=== PATIENT | male | born 1940 | race Caucasian/White ===

== ENCOUNTER → 2016-08-23 | Outpatient (CLI) | payer MEDICARE ==
[2016-08-23 10:14] LABS: Amorphous Sediment,Urine Rare /hpf; Appearance,Urine Cloudy (Clear); Bilirubin,Urine Negative (Negative); Glucose,Urine (UA) Negative (Negative); Ketones,Urine Negative (Negative); Leukocyte Esterase,Urine Negative (Negative); Mucus,Urine Many /hpf; Nitrite,Urine Negative (Negative); Particle Count 11452; Protein,Urine 1+ (Negative); RBC,Urine 1 /hpf (0-5); Specific Gravity,Urine 1.029 (1.001-1.035); UA Billing (MACRO vs. MICRO) MICRO
[2016-08-23 10:16] LABS: CH 33.2; CHCM 36.6; HCT 40.8 % (39.0-53.0); HGB 13.9 gm/dL (13.0-17.5); Hyperchromasia Slight; MCH 31.1 pg (25.0-35.0); MCHC 34.1 g/dL (31.0-37.0); MCV 91.2 fL (80.0-100.0); Mean Platelet Volume 7.3; Poikilocytosis Slight; RBC 4.47 m/uL (4.30-5.90); RDW 14.7 % (11.5-15.5); WBC 5.8 k/uL (3.8-10.6)
[2016-08-23 10:47] LABS: ALT 43 U/L (21-72); AST 29 U/L (17-59); Alkaline Phosphatase 84 U/L (38-126); Anion Gap 9 mmol/L; Blood Urea Nitrogen 20 mg/dL (9-20); Calcium 9.1 mg/dL (8.4-10.2); Carbon Dioxide 29 mmol/L (22-30); Chloride 105 mmol/L (98-107); Cholesterol 166 mg/dL (<200); Glucose 140 mg/dL (74-99); HDL Cholesterol 57 mg/dL (40-60); Non-African American GFR(MDRD) 59 (>60 ml/min/1.73 sqM); Potassium 4.9 mmol/L (3.5-5.1); Sodium 143 mmol/L (137-145); Total Bilirubin 1.2 mg/dL (0.2-1.3); Total Protein 7.1 g/dL (6.3-8.2); Triglycerides 152 mg/dL (<150)
[2016-08-23 11:14] LABS: Prostate Specific Antigen <0.06 ng/mL (0.00-4.00)
== END | disposition home or self-care (01) ==
LOC: LABWHC1 09:31
PROVIDERS: ATTEND Internal Medicine
DX: Z00.00 Encounter for general adult medical examination without abnormal findings (principal); C61 Malignant neoplasm of prostate; R73.01 Impaired fasting glucose
CPT/HCPCS: 36415; 80053; 80061; 81001; 84153; 85027

== ENCOUNTER → 2017-09-13 | Outpatient (CLI) | payer MEDICARE ==
[2017-09-13 11:42] LABS: HCT 36.7 % (39.0-53.0); HGB 12.8 gm/dL (13.0-17.5); MCH 32.2 pg (25.0-35.0); MCHC 34.8 g/dL (31.0-37.0); MCV 92.5 fL (80.0-100.0); Mean Platelet Volume 7.4; Platelet Count 138 k/uL (150-450); Poikilocytosis Slight; RBC 3.97 m/uL (4.30-5.90); RDW 14.5 % (11.5-15.5); WBC 4.2 k/uL (3.8-10.6)
[2017-09-13 12:00] LABS: ALT 34 U/L (21-72); AST 31 U/L (17-59); Alkaline Phosphatase 66 U/L (38-126); Anion Gap 8 mmol/L; Blood Urea Nitrogen 19 mg/dL (9-20); Calcium 9.2 mg/dL (8.4-10.2); Carbon Dioxide 30 mmol/L (22-30); Chloride 103 mmol/L (98-107); Cholesterol 169 mg/dL (<200); Glucose 127 mg/dL (74-99); HDL Cholesterol 54 mg/dL (40-60); LDL Cholesterol,Calculated 85 mg/dL (0-99); Potassium 4.6 mmol/L (3.5-5.1); Sodium 141 mmol/L (137-145); Total Bilirubin 1.1 mg/dL (0.2-1.3); Total Protein 6.3 g/dL (6.3-8.2); Triglycerides 151 mg/dL (<150)
[2017-09-13 12:32] LABS: Prostate Specific Antigen <0.10 ng/mL (0.00-4.00)
[2017-09-13 17:29] LABS: Hemoglobin A1C 4.9 % (4.0-6.0)
== END | disposition home or self-care (01) ==
LOC: LABWHC1 10:59
PROVIDERS: ATTEND Internal Medicine
DX: Z00.00 Encounter for general adult medical examination without abnormal findings (principal); C61 Malignant neoplasm of prostate; R73.01 Impaired fasting glucose; I10 Essential (primary) hypertension
CPT/HCPCS: 36415; 80053; 80061; 83036; 84153; 85027

== ENCOUNTER 2021-04-28 11:47 | Inpatient (IN) | payer MEDICARE ==
--- NOTE | 2021-04-28 12:08 | ED ---
General Adult HPI - General Stated complaint: Fall/Neuro Symptoms Time Seen by Provider: 04/28/21 11:52 Source: patient, EMS, RN notes reviewed Mode of arrival: EMS Limitations: no limitations - History of Present Illness Initial comments: Patient is a pleasant 81-year-old male presenting to the emergency department with concerns for potential stroke. Onset of symptoms appears to be around 3:30 AM. Patient woke up to use the restroom. Symptoms started following that. Patient did have problems finding words and slurred speech. Patient did have some difficulty using his right arm. Patient also had staggered gait. Patient was evaluated by physician friend and brought to the emergency department by EMS. Physician friend feels speech has significantly improved at this time and is near normal. Patient also feels he has significantly improved. No history of similar symptoms previously. Patient is on baby aspirin daily. Patient did have a fall to the side of the garage yesterday and did strike his head on a metal track. Patient had been doing fine that day and yesterday. - Related Data Home Medications Medication Instructions Recorded Confirmed Atorvastatin [Lipitor] 20 mg PO DAILY 11/16/15 04/28/21 Ibuprofen [Motrin Ib] 400 mg PO Q8H PRN 04/28/21 04/28/21 Latanoprost/Pf [Latanoprost 0.005% 1 drop BOTH EYES DAILY 04/28/21 04/28/21 Eye Drop] Timolol 0.5% Ophth Soln [Timoptic 1 drop BOTH EYES DAILY 04/28/21 04/28/21 0.5% Ophth Soln] atenoloL [Tenormin] 12.5 - 25 mg PO DAILY PRN 04/28/21 04/28/21 Allergies Allergy/AdvReac Type Severity Reaction Status Date / Time No Known Allergies Allergy Verified 04/28/21 13:19 Review of Systems ROS Statement: Those systems with pertinent positive or pertinent negative responses have been documented in the HPI. ROS Other: All systems not noted in ROS Statement are negative. Constitutional: Denies: fever Eyes: Denies: eye pain ENT: Denies: ear pain Respiratory: Denies: cough Cardiovascular: Denies: chest pain Endocrine: Denies: fatigue Gastrointestinal: Denies: abdominal pain Genitourinary: Denies: urgency Musculoskeletal: Denies: back pain Skin: Denies: rash Neurological: Reports: as per HPI, weakness, confusion, abnormal gait Past Medical History Past Medical History: Cancer, Hyperlipidemia Additional Past Medical History / Comment(s): CA: prostate & radiation, aortic stenosis History of Any Multi-Drug Resistant Organisms: None Reported Additional Past Surgical History / Comment(s): colonoscopy Past Anesthesia/Blood Transfusion Reactions: No Reported Reaction Past Psychological History: No Psychological Hx Reported Past Alcohol Use History: Rare Past Drug Use History: None Reported - Past Family History Mother Family Medical History: Coronary Artery Disease (CAD) Father Family Medical History: Coronary Artery Disease (CAD) General Exam Limitations: no limitations General appearance: alert, in no apparent distress Head exam: Present: other (Left forehead soft tissue swelling) Eye exam: Present: normal appearance, PERRL, EOMI. Absent: nystagmus Neck exam: Present: normal inspection Respiratory exam: Present: normal lung sounds bilaterally Cardiovascular Exam: Present: regular rate, normal rhythm, systolic murmur GI/Abdominal exam: Present: soft. Absent: tenderness Extremities exam: Present: normal inspection Neurological exam: Present: alert, CN II-XII intact. Absent: motor sensory deficit Expanded Neurological exam: Present: protecting the airway, other (Questionable minimal slurred speech) Cranial nerves: EOM's Intact: Normal, Facial Sensation: Normal Sensory exam: Upper Extremity Light Touch: Normal, Lower Extremity Light Touch: Normal Motor strength exam: RUE: 5, LUE: 5, RLE: 5, LLE: 5 Eye Response: (4) open spontaneously Motor Response: (6) obeys commands Verbal Response: (5) oriented Psychiatric exam: Present: normal affect, normal mood Skin exam: Present: normal color Course Vital Signs 04/28/21 11:58 Pulse Rate 46 L Respiratory 18 Rate Blood Pressure 186/83 O2 Sat by Pulse 99 Oximetry - Reevaluation(s) Reevaluation #1: 04/28/21 12:08 Case was discussed with Dr. Wolfe who agrees patient is not TPA candidate at this time. Patient is not candidate secondary to symptoms. Than 4.5 hours. Patient also has resolution of symptoms. Patient also has recent head injury. EKG Findings - EKG Comments: EKG Findings:: Sinus bradycardia with rate of 51 with sinus arrhythmia. CA 178. QRS 92. QT 456. QTc 420. Normal axis. LVH criteria. No acute ST change. Medical Decision Making - Medical Decision Making Patient was reevaluated and updated. Son is present now who is also a physician. They're all updated. Dr. valentin has been paged for admission of his patient. - Lab Data Result diagrams: 04/28/21 12:18 04/28/21 12:18 Lab Results 04/28/21 04/28/21 04/28/21 Range/Units 12:18 12:18 12:18 WBC 5.8 (3.8-10.6) k/uL RBC 3.51 L (4.30-5.90) m/uL Hgb 11.7 L (13.0-17.5) gm/dL Hct 31.4 L (39.0-53.0) % MCV 89.3 (80.0-100.0) fL MCH 33.4 (25.0-35.0) pg MCHC 37.4 H (31.0-37.0) g/dL RDW 12.6 (11.5-15.5) % Plt Count 145 L (150-450) k/uL MPV 8.0 Neutrophils % 73 % Lymphocytes % 14 % Monocytes % 8 % Eosinophils % 1 % Basophils % 0 % Neutrophils # 4.3 (1.3-7.7) k/uL Lymphocytes # 0.8 L (1.0-4.8) k/uL Monocytes # 0.5 (0-1.0) k/uL Eosinophils # 0.1 (0-0.7) k/uL Basophils # 0.0 (0-0.2) k/uL Hyperchromasia Marked PT 10.8 (9.0-12.0) sec INR 1.0 (<1.2) APTT 24.4 (22.0-30.0) sec Sodium 123 L (137-145) mmol/L Potassium 4.3 (3.5-5.1) mmol/L Chloride 94 L (98-107) mmol/L Carbon Dioxide 23 (22-30) mmol/L Anion Gap 6 mmol/L BUN 7 L (9-20) mg/dL Creatinine 0.85 (0.66-1.25) mg/dL Est GFR (CKD-EPI)AfAm >90 (>60 ml/min/1.73 sqM) Est GFR (CKD-EPI)NonAf 81 (>60 ml/min/1.73 sqM) Glucose 130 H (74-99) mg/dL Calcium 8.6 (8.4-10.2) mg/dL Total Bilirubin 0.7 (0.2-1.3) mg/dL AST 30 (17-59) U/L ALT 22 (4-49) U/L Alkaline Phosphatase 60 (38-126) U/L Troponin I (0.000-0.034) ng/mL Total Protein 5.6 L (6.3-8.2) g/dL Albumin 3.3 L (3.5-5.0) g/dL 04/28/21 Range/Units 12:18 WBC (3.8-10.6) k/uL RBC (4.30-5.90) m/uL Hgb (13.0-17.5) gm/dL Hct (39.0-53.0) % MCV (80.0-100.0) fL MCH (25.0-35.0) pg MCHC (31.0-37.0) g/dL RDW (11.5-15.5) % Plt Count (150-450) k/uL MPV Neutrophils % % Lymphocytes % % Monocytes % % Eosinophils % % Basophils % % Neutrophils # (1.3-7.7) k/uL Lymphocytes # (1.0-4.8) k/uL Monocytes # (0-1.0) k/uL Eosinophils # (0-0.7) k/uL Basophils # (0-0.2) k/uL Hyperchromasia PT (9.0-12.0) sec INR (<1.2) APTT (22.0-30.0) sec Sodium (137-145) mmol/L Potassium (3.5-5.1) mmol/L Chloride (98-107) mmol/L Carbon Dioxide (22-30) mmol/L Anion Gap mmol/L BUN (9-20) mg/dL Creatinine (0.66-1.25) mg/dL Est GFR (CKD-EPI)AfAm (>60 ml/min/1.73 sqM) Est GFR (CKD-EPI)NonAf (>60 ml/min/1.73 sqM) Glucose (74-99) mg/dL Calcium (8.4-10.2) mg/dL Total Bilirubin (0.2-1.3) mg/dL AST (17-59) U/L ALT (4-49) U/L Alkaline Phosphatase (38-126) U/L Troponin I <0.012 (0.000-0.034) ng/mL Total Protein (6.3-8.2) g/dL Albumin (3.5-5.0) g/dL - Radiology Data Radiology results: report reviewed (Computed tomography scan of the brain shows atrophy. CTA shows stenosis left internal carotid artery. Right subclavian artery stenosis.), image reviewed (Chest and abdominal x-ray shows no acute process.) Disposition Clinical Impression: Cerebrovascular accident (CVA), Hyponatremia Disposition: ADMITTED IP TO THIS HOSP Is patient prescribed a controlled substance at d/c from ED?: No Referrals: Hansel Valentin MD [Primary Care Provider] - 1-2 days Decision Time: 13:39
--- NOTE | 2021-04-28 12:27 | CT ---
EXAMINATION TYPE: CT brain wo con for TPA DATE OF EXAM: 04/28/2021 COMPARISON: None HISTORY: fall, neuro deficit, acute, stroke suspected CT DLP: 1058 mGycm Automated exposure control for dose reduction was used. Local imaging through the brain. FINDINGS: Periventricular white matter shows patchy low attenuation. There is no hemorrhage or hydrocephalus. T here are cerebral vascular calcifications. The calvarium is intact. Paranasal sinuses and mastoid air cells as visualized are normal. IMPRESSION: AGE-RELATED CHANGES OF ATROPHY AND PROBABLE CHRONIC SMALL VESSEL ISCHEMIA.
[2021-04-28 12:39] LABS: ALT 22 U/L (4-49); AST 30 U/L (17-59); African American GFR (CKD) >90 (>60 ml/min/1.73 sqM); Albumin 3.3 g/dL (3.5-5.0); Alkaline Phosphatase 60 U/L (38-126); Anion Gap 6 mmol/L; Blood Urea Nitrogen 7 mg/dL (9-20); Calcium 8.6 mg/dL (8.4-10.2); Carbon Dioxide 23 mmol/L (22-30); Chloride 94 mmol/L (98-107); Glucose 130 mg/dL (74-99); Non-African American GFR(CKD) 81 (>60 ml/min/1.73 sqM); Potassium 4.3 mmol/L (3.5-5.1); Sodium 123 mmol/L (137-145); Total Bilirubin 0.7 mg/dL (0.2-1.3); Total Protein 5.6 g/dL (6.3-8.2)
[2021-04-28 12:43] LABS: Partial Thromboplastin Time 24.4 sec (22.0-30.0); Prothrombin Time 10.8 sec (9.0-12.0)
[2021-04-28 12:49] LABS: Basophils % (A) 0 %; Eosinophils # (A) 0.1 k/uL (0-0.7); Eosinophils % (A) 1 %; HCT 31.4 % (39.0-53.0); HGB 11.7 gm/dL (13.0-17.5); Hyperchromasia Marked; Lymphocytes # (A) 0.8 k/uL (1.0-4.8); Lymphocytes % (A) 14 %; MCH 33.4 pg (25.0-35.0); MCHC 37.4 g/dL (31.0-37.0); MCV 89.3 fL (80.0-100.0); Monocytes # (A) 0.5 k/uL (0-1.0); Monocytes % (A) 8 %; Neutrophils # (A) 4.3 k/uL (1.3-7.7); Neutrophils % (A) 73 %; Platelet Count 145 k/uL (150-450); RBC 3.51 m/uL (4.30-5.90); RDW 12.6 % (11.5-15.5); WBC 5.8 k/uL (3.8-10.6)
[2021-04-28] MEDS ORDERED: SODIUM CHLORIDE 0.9% 500 ML 500 ML IV STA (12:50)
--- NOTE | 2021-04-28 13:13 | CT ---
EXAMINATION TYPE: CT angio head neck DATE OF EXAM: 04/28/2021 HISTORY: fall, neuro deficit, acute, stroke suspected COMPARISON: CT brain same date CT DLP: 390.3 mGycm. Automated Exposure Control for Dose Reduction was Utilized. TECHNIQUE: CTA scan of the neck is performed with IV Contrast, patient injected with 65 mL of Isovue 370, axial images are obtained, coronal and sagittal reformatted images are reviewed. 3D reconstruct ed images are created on an independent workstation and reviewed. FINDINGS: Carotid/Vascular Structures: The thoracic aorta, innominate, left and right common carotid, left and right subclavian arteries are patent, there is a stenosis of the proximal right subclavian artery whi ch appears to be high-grade, axial image #15. No significant carotid stenosis is evident on the right , on the left there is a proximal internal carotid artery stenosis present estimated at least 60-70% diameter reduction. Internal and external carotid arteries are patent, the left vertebral artery is d ominant. Anterior and posterior circulation within the [place] are patent, there is no evident embolu s or dissection, no evident aneurysm. Note evident intracranial stenosis. Degenerative disc changes are present in the visualized spine, there is associated facet arthropathy. Other: IMPRESSION: Proximal right subclavian artery shows a stenosis. Correlate with discrepant upper extrem ity blood pressures. There is carotid stenosis on the left which is hemodynamically significant. NASCET criteria was used in interpretation of this exam?
--- NOTE | 2021-04-28 13:23 | XR ---
EXAMINATION TYPE: XR chest 2V DATE OF EXAM: 04/28/2021 COMPARISON: Chest x-ray 11/14/2010 HISTORY: Altered mental status TECHNIQUE: Frontal and lateral views of the chest are obtained. FINDINGS: There is no focal air space opacity, pleural effusion, or pneumothorax seen. The cardiac silhouette size is somewhat prominent accounting for technique, patient is rotated, lung volumes are low, there are overlying leads. The osseous structures are intact. IMPRESSION: Expiratory rotated exam. Accentuation in the appearance of the heart may be technical. F ollow-up as indicated.
--- NOTE | 2021-04-28 13:25 | XR ---
KUB HISTORY: Constipation KUB and T2 images, no comparisons There is contrast material within the bladder and renal collecting systems, ureters from patient's co ntrast enhanced CT same date. Lung bases are clear. Degenerative disc changes are present in the visu alized spine. There are overlying leads. No evident pneumoperitoneum or bowel obstruction. Probable p hlebolith present in the left hemipelvis, there are prostate seeds in place. IMPRESSION: Nonobstructed bowel gas pattern, follow-up as indicated.
[2021-04-28] MEDS ORDERED: ASPIRIN 325 MG TAB PO STA (13:40)
[2021-04-28] MEDS ORDERED: CLOPIDOGREL 75 MG TAB PO STA (14:35)
[2021-04-28] MEDS ORDERED: METOPROLOL TARTRATE 12.5 MG TAB PO STA (14:47)
[2021-04-28 14:59] LABS: Appearance,Urine Clear (Clear); Bilirubin,Urine Negative (Negative); Blood,Urine Negative (Negative); Color,Urine Light Yellow; Glucose,Urine (UA) Negative (Negative); Ketones,Urine Negative (Negative); Leukocyte Esterase,Urine Negative (Negative); Nitrite,Urine Negative (Negative); Protein,Urine Negative (Negative); Specific Gravity,Urine 1.018 (1.001-1.035); Urobilinogen,Urine <2.0 mg/dL (<2.0)
[2021-04-28] MEDS ORDERED: ASPIRIN 81 MG PO STA (15:11)
[2021-04-28] MEDS: SODIUM CHLORIDE 0.9% 1,000 ML IV SCH ×2 (15:15→23:55)
--- NOTE | 2021-04-28 15:32 | P.HPIM ---
History of Present Illness H&P Date: 04/28/21 Chief Complaint: Slurred speech all at home on his left side of the head with hematoma 2 day History and physical Dictation by Dr. Barbie Morales [facility] date of service 04/28/2021. 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 He had a slurred speech and problem with expressive aphasia and difficulty using his right arm and stay guarded gait. History of present illness Dr. 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 And expressive aphasia. This patient arrived to the emergency room he had a computed tomography scan which was negative and CT angiogram with the presence of right subclavian stenosis and left carotid artery stenosis in the range of 70% and despite that pulses radial pulses and brachial pulses i are normal. He is on 126 mg of aspirin at home daily apparently has been failed with the supporting evidence to include TIA or stroke in progression despite of the use of aspirin 126 mg once daily. Past medical history only eyedrops latanoprost 0.005% 1 drop each eye daily and atenolol 0.5% ophthalmic solution Timoptic 0.5% 1 drop both eyes daily He is on atorvastatin 20 mg daily at bedtime also he is on ibuprofen 400 mg every 8 hour when necessary which has been stopped on this admission Patient also on atenolol 12.5 mg once daily however he had tachycardia and he used to take it for hypertension ALLERGY is unknown No history of smoking No history of drinking He had significant history of constipation and he has been advised with Dr. Makenna Duron gastroenterology and she was planning for colonoscopy at the end of this month. However the patient has been using MiraLAX as well as Dulcolax and other laxatives including suppositories with no response. With the underlying abdominal distention. Patient has a son and a daughter loss the ER physician as well. Review of system Eyes no infection and no pain Constitutional no fever no chills. Respiratory no cough or expectoration Cardiovascular no palpitations or chest pain but history of hypertension Endocrine no history of fatigue however in the last few weeks he become sluggish his initial laboratory found that he had hyperglycemia and will be checking on diabetes as well. Gastrointestinal which is also a problem as he tried to go to the bathroom and having several modality for over 2 weeks and at that time in the ER found that he has hyponatremia with the sodium 123 in the ER. No history of drug resistant or blood transfusion reaction no psychological history and no alcohol intake except for rare occasion and no drug use. Family history coronary artery disease Past medical history hypertension hyperlipidemia, bradycardia with the use of atenolol. Physical exam: Patient is conscious alert oriented still have remanent of speech disturbance however resolved any facial paresthesia with the underlying TIA. Also with the underlying right subclavian stenosis which is not significant as well as left carotid stenosis. The head was traumatic on his left side above the eyebrows with the hematoma whe n he has it however is resolving gradually. Computed tomography scan done indicate no other fracture or hematoma. Oropharynx natural teeth Pupil is equal reactive Hearing is normal. Neck was supple no JVD no thyromegaly no lymphadenopathy. Chest clear to auscultation and percussion no wheezes no rhonchi's. The heart regular sinus rhythm with a history of hypertension rule out hypertensive heart disease on telemetry and echocardiogram ordered. The abdomen is distended with tympanitic on percussion positive unclear if he had obstruction, KUB done in the ER which indicating nonspecific gas and patient plays on clear liquid diet and tomorrow will check if he has any improvement or we need to obtain computed tomography scan of the abdomen with contrast and obtaining a serum on malaise and lipase. Extremities: No edema and positive pulses bilateral. Neurologically: Patient able to extend his arm no tremor and able to perform the simple cranial nerve checks without problem his motor power is stable with no paresthesias and no motor deficit. The assessment Assessment: And the plan #1 TIA with progression and we will be monitoring the patient with the neurochecks and the computed tomography scan the initial one was negative and if any development we will be obtaining MRI of the brain. Abdominal distention with the underlying obstruction combating on percussion with some discomfort will wait with the use of clear liquid diet for tonight we'll assess tomorrow and see if any need for further testing. Monitoring the neurochecks per protocol as well. His son is a physician actually senior environmental engineer in [place] and he will be staying with them tonight. Further evaluation depends on the results and the virtual urology is not needed at this time for patient evaluation however if we have progression we may call for. Past Medical History Past Medical History: Cancer, Hyperlipidemia Additional Past Medical History / Comment(s): CA: prostate & radiation, History of Any Multi-Drug Resistant Organisms: None Reported Additional Past Surgical History / Comment(s): colonoscopy Past Anesthesia/Blood Transfusion Reactions: No Reported Reaction Past Psychological History: No Psychological Hx Reported Smoking Status: Never smoker Past Alcohol Use History: Rare Past Drug Use History: None Reported - Past Family History Mother Family Medical History: Coronary Artery Disease (CAD) Father Family Medical History: Coronary Artery Disease (CAD) Medications and Allergies Home Medications Medication Instructions Recorded Confirmed Type Atorvastatin [Lipitor] 20 mg PO DAILY 11/16/15 04/28/21 History Ibuprofen [Motrin Ib] 400 mg PO Q8H PRN 04/28/21 04/28/21 History Latanoprost/Pf [Latanoprost 0.005% 1 drop BOTH EYES DAILY 04/28/21 04/28/21 History Eye Drop] Timolol 0.5% Ophth Soln [Timoptic 1 drop BOTH EYES DAILY 04/28/21 04/28/21 History 0.5% Ophth Soln] atenoloL [Tenormin] 12.5 - 25 mg PO DAILY PRN 04/28/21 04/28/21 History Allergies Allergy/AdvReac Type Severity Reaction Status Date / Time No Known Allergies Allergy Verified 04/28/21 13:19 Physical Exam Vitals: Vital Signs Pulse Resp BP Pulse Ox 04/28/21 11:58 46 L 18 186/83 99 Intake and Output 04/28/21 04/28/21 04/28/21 06:59 14:59 22:59 Other: Weight 68.946 kg Results CBC & Chem 7: 04/28/21 12:18 04/28/21 12:18 Labs: Abnormal Lab Results - Last 24 Hours (Table) 04/28/21 04/28/21 04/28/21 Range/Units 12:18 12:18 12:18 RBC 3.51 L (4.30-5.90) m/uL Hgb 11.7 L (13.0-17.5) gm/dL Hct 31.4 L (39.0-53.0) % MCHC 37.4 H (31.0-37.0) g/dL Plt Count 145 L (150-450) k/uL Lymphocytes # 0.8 L (1.0-4.8) k/uL Sodium 123 L (137-145) mmol/L Chloride 94 L (98-107) mmol/L BUN 7 L (9-20) mg/dL Glucose 130 H (74-99) mg/dL Osmolality 265 L (280-301) mosm/kg Total Protein 5.6 L (6.3-8.2) g/dL Albumin 3.3 L (3.5-5.0) g/dL Thrombosis Risk Factor Assmnt - Choose All That Apply Any of the Below Risk Factors Present?: No Other Risk Factors: Yes Each Risk Factor Represents 3 Points: Age 75 years or older Other congenital or acquired thrombophilia - If yes, enter type in comment: No Thrombosis Risk Factor Assessment Total Risk Factor Score: 3 Thrombosis Risk Factor Assessment Level: Moderate Risk
[2021-04-28] MEDS: ATORVASTATIN 20 MG TAB PO SCH (15:33)
[2021-04-28 16:11] LABS: Amylase 66 U/L (30-110); Lipase 396 U/L (23-300)
[2021-04-29 01:31] LABS: Folate, Serum >20.00 ng/mL (4.40-31.00)
[2021-04-29] MEDS ORDERED: MAGNESIUM HYDROXIDE 2,400 MG/10 ML CUP PO PRN (06:05)
[2021-04-29] MEDS ORDERED: ASPIRIN 325 MG TAB PO SCH (09:00)
[2021-04-29] MEDS ORDERED: IOPAMIDOL CONTRAST (ORAL USE) VIAL PO PRN (09:21)
[2021-04-29 09:49] LABS: ALT 27 U/L (4-49); AST 39 U/L (17-59); African American GFR (CKD) >90 (>60 ml/min/1.73 sqM); Albumin 3.8 g/dL (3.5-5.0); Alkaline Phosphatase 76 U/L (38-126); Amylase 61 U/L (30-110); Anion Gap 8 mmol/L; Blood Urea Nitrogen 6 mg/dL (9-20); Calcium 8.9 mg/dL (8.4-10.2); Carbon Dioxide 24 mmol/L (22-30); Chloride 98 mmol/L (98-107); Glucose 142 mg/dL (74-99); Lipase 379 U/L (23-300); Non-African American GFR(CKD) 84 (>60 ml/min/1.73 sqM); Sodium 130 mmol/L (137-145); Total Bilirubin 0.8 mg/dL (0.2-1.3); Total Protein 6.1 g/dL (6.3-8.2)
[2021-04-29] MEDS: ATORVASTATIN 20 MG TAB PO SCH (09:49)
[2021-04-29] MEDS: SODIUM CHLORIDE 0.9% 1,000 ML IV SCH ×2 (09:49→21:04)
[2021-04-29] MEDS: ASPIRIN 81 MG PO SCH (09:49)
[2021-04-29] MEDS: IOPAMIDOL CONTRAST (ORAL USE) VIAL PO PRN ×2 (09:49→10:40)
[2021-04-29 10:23] LABS: Basophils % (A) 0 %; Eosinophils % (A) 1 %; HCT 35.2 % (39.0-53.0); HGB 12.9 gm/dL (13.0-17.5); Hyperchromasia Marked; Lymphocytes # (A) 0.8 k/uL (1.0-4.8); Lymphocytes % (A) 14 %; MCH 33.1 pg (25.0-35.0); MCHC 36.6 g/dL (31.0-37.0); MCV 90.5 fL (80.0-100.0); Monocytes # (A) 0.5 k/uL (0-1.0); Monocytes % (A) 8 %; Neutrophils # (A) 4.1 k/uL (1.3-7.7); Neutrophils % (A) 74 %; Platelet Count 177 k/uL (150-450); Poikilocytosis Slight; RBC 3.89 m/uL (4.30-5.90); WBC 5.6 k/uL (3.8-10.6)
[2021-04-29] MEDS: LATANOPROST 0.005% OPHTH DROPS 2.5 ML BTL BOTH EYES SCH (10:40)
[2021-04-29] MEDS: TIMOLOL 0.5% OPHTH DROPS 5 ML BTL BOTH EYES SCH (10:40)
--- NOTE | 2021-04-29 11:40 | CT ---
EXAMINATION TYPE: CT abdomen pelvis w con DATE OF EXAM: 04/29/2021 COMPARISON: HISTORY: ELEVATED LIPASE, ABD PAIN, CONSTIPATION CT DLP: 884.7 mGycm Automated exposure control for dose reduction was used. TECHNIQUE: Helical acquisition of images from the lung bases through the pelvis have been completed. CONTRAST: Performed with Oral Contrast and with IV Contrast, patient injected with 100 mL of Isovue 300. FINDINGS: LUNG BASES: No significant abnormality is appreciated. AORTA: Atheromatous changes are present1. LIVER/GB: Liver shows no mass. Hypodensity within the gallbladder may be due to vicarious excretion o f contrast.. PANCREAS: Mildly prominent appearance of the pancreatic head, axial image #34, coronal image 47 could BE normal variant, there is no evident disruption of local fat plane to suggest tumor, follow-up sug gested to assess for stability. SPLEEN: No significant abnormality is seen. ADRENALS: No significant abnormality is seen. KIDNEYS: Left kidney shows cortical cyst. Cysts at the posterior aspect of the upper pole measures 2 cm. REPRODUCTIVE ORGANS: To prostate seeds are present. BOWEL: Some scattered diverticular changes are present. No evident inflammatory change. There is no bowel obstruction. Appendix shows a normal appearance. FREE AIR: No Free Air visible. ASCITES: Minimal free fluid is present within the pelvis PELVIC ADENOPATHY: None visualized. RETROPERITONEAL ADENOPATHY: No Retroperitoneal Adenopathy visible. URINARY BLADDER: Hyperdensity within the bladder likely due to prior contrast administration. OSSEOUS STRUCTURES: There are degenerative disc changes present, associated facet arthropathy. Minim al anterolisthesis grade 1 L5-S1, there is a spinal curvature. At the superior endplate of L4 on the right there is a lucent area present, inferior endplate of L3 at this level shows a similar appearanc e, findings could possibly represent Schmorl's node formation. Anterior flowing osteophytes in the th oracic spine with preservation of disc space may be related to diffuse idiopathic skeletal hyperostos is. IMPRESSION: 1 FINDINGS AT THE HEAD OF THE PANCREAS DESCRIBED. CONSIDER INTERVAL FOLLOW-UP TO ASSESS FOR STABIL ITY, MRI PANCREAS INDICATED. MINIMAL FLUID PRESENT WITHIN THE PELVIS.
[2021-04-29] MEDS ORDERED: CYANOCOBALAMIN 1,000 MCG/ML 1 ML VIAL IM ONE (13:19)
[2021-04-29] MEDS: INSULIN ASPART (NovoLOG) 100 UNIT/ML VIAL SQ SCH ×2 (14:11→17:18)
--- NOTE | 2021-04-29 15:10 | P.PN ---
Subjective Progress Note Date: 04/29/21 (TIA, cardiac Pauses more than 2 seconds rhythm strip, abdominal distention) Principal diagnosis: Diagnosis: #1 TIA affected the right side result in a 24-hour and no for further extension #2 hyponatremia with improvement with hydration from 123 130. 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 #5 cardiac m rhythm with pauses more than 2 seconds, consultation with Dr. Allred cardiology, discontinuation of beta blockers. #6 hypertension controlled. #7 dehydration gradual improvement but not resulted yet. #8 anxiety/depression. #9 history of hypertension controlled with underlying hypertensive heart disease echocardiogram has been ordered. February date of service [id number]. Dictation by Dr. Bella. Patient seen and evaluated today discussed with the patient and his son Dr. Rich Lanza. Computed tomography scan of the abdomen and pelvis obtained with the questionable variant of the head of the pancreas. Patient had past history of prostatic cancer 2005 which treated with radiation therapy by Dr. Yarbrough which consisted of 16 years ago. He had that feeling of urge to go to the bowel movement with no bowel movement with the concern of sensation in the sigmoid colon could be resulted from the radiation proctitis however that done [address] Duron plan for him colonoscopy for evaluation and couple weeks. The desk monitor found that he had pauses more than 2 seconds and we consulted Dr. Avilez cardiology as well as obtaining echocardiogram for evaluation of hypertensive heart disease and valvular heart disease. Computed tomography scan of the abdomen and pelvis discussed the results with the patient and his son. Also discussed old previous investigation. This plan for flu vaccine quadrivalent the high doses as well tomorrow. Discussed the chronic constipation and feeling and will start him on Colace 100 mg twice a day. With the underlying anxiety and possible situation depression start on Celexa 10 mg once daily. Laboratory ordered for tomorrow for lipase which found to be elevated today, also will obtain BMP and CBC with differential tomorrow for follow-up on the electrolyte with the hyponatremia. On the examination: Head was normocephalic and atraumatic however he had previous fall a few days ago with the bluish discoloration around his eyes and nose as his glucose pump was above his left eyebrow when he fall. He had no paresthesia of the fascial or the arms or legs, no change in the nasolabial fold, no vision disturbance is this cranial nerves stable from 2-12. Conscious alert oriented able to discussed and questions and process the thoughts. No upper and lower extremity abnormalities no weakness. Able to eat and swallow with no dysphagia. Hearing is normal, nose normal spell no rhinitis. Neck was supple no JVD no thyromegaly no lymphadenopathy and trachea midline. He has left carotid stenosis and right subclavian stenosis did not affect pulses on his arms or the legs with the plan for future evaluation as outpatient by the vascular surgeon. Chest is clear to auscultation and percussion no wheezes no rhonchi's. Heart regular sinus rhythm with the bradycardia, pauses Abdomen: Status post the computed tomography scan of the abdomen discussed the result with the patient and his son, positive bowel sounds and the abdomen was softer and less distention. Extremities no edema and positive pulses bilateral and symmetrical. Neurologically intact no lateralizing sign no neuro deficit. Assessment: #1 TIA expected the left facial #2 right subclavian stenosis mild was normal pulses of the radial #3 carotid artery disease #4 hyponatremia probably associated with multiple laxatives and enemas and decrease intake #5 dehydration #6 vitamin B12 deficiency #7 abdominal distention with the head of the pancreas is variant picture on the computed tomography scan of the abdomen #8 history of radiation therapy on the prostatic cancer with question of radiation proctitis considered. #9 Mild hyperglycemia covered with insulin to scale. 9 #10 lumbar spine advanced arthritis by the computed tomography scan done today no symptoms at this time. Plan: #1 continue the IV fluid and recheck tomorrow. BMP and a CBC #2 history of mild anemia check on iron studies and serum ferritin. #[address] Allred cardiology for evaluation of the rhythm abnormalities. #4 rehab for ambulation as well as possible home rehab status post the TIA #5 continue Plavix 75 mg once a day and aspirin 81 mg for one month's subsequently we'll drop the aspirin and continue with the Plavix. Discussed with the patient and his son possibility of MRI as outpatient if there is any event recurrent. Patient on the Plavix because of the failure of aspirin 162 mg once daily. Echocardiogram for evaluation with the history of hypertension hypertensive heart disease and TIA with consideration of valvular heart disease. Objective - Vital Signs Vital signs: Vital Signs Temp 97.1 F L 04/29/21 10:08 Pulse 51 L 04/29/21 11:40 Resp 18 04/29/21 10:08 BP 128/74 04/29/21 11:40 Pulse Ox 96 04/29/21 10:08 Intake & Output 04/28/21 04/29/21 04/29/21 18:59 06:59 18:59 Intake Total 1100 100 Balance 1100 100 Weight 68.94 kg 68.9 kg Intake: Intake, IV Titration 900 Amount Sodium Chloride 0.9% 1, 400 000 ml @ 100 mls/hr IV . Q10H [facility] Rx#:[id number] Sodium Chloride 0.9% 500 500 ml 500 ml @ 999 mls/hr IV .Q31M [facility] Rx#:[id number] Oral 200 100 Other: Voiding Method Toilet Toilet Toilet Urinal Urinal Urinal # Voids 1 1 1 # Bowel Movements 1 1 - Labs CBC & Chem 7: 04/29/21 08:46 04/29/21 09:27 Labs: Abnormal Lab Results - Last 24 Hours (Table) 04/28/21 04/29/21 04/29/21 Range/Units 14:30 08:46 09:27 RBC 3.89 L (4.30-5.90) m/uL Hgb 12.9 L (13.0-17.5) gm/dL Hct 35.2 L (39.0-53.0) % Lymphocytes # 0.8 L (1.0-4.8) k/uL Sodium 130 L (137-145) mmol/L BUN 6 L (9-20) mg/dL Glucose 142 H (74-99) mg/dL Total Protein 6.1 L (6.3-8.2) g/dL Lipase 396 H 379 H (23-300) U/L
[2021-04-29 16:28] LABS: Glucose,Whole Blood 145 mg/dL (75-99)
[2021-04-29] MEDS: CLOPIDOGREL 75 MG TAB PO SCH (16:40)
[2021-04-29 16:51] LABS: Chol/HDL Ratio 3.02 Ratio
[2021-04-29] MEDS: CITALOPRAM HYDROBROMIDE 10 MG TAB PO SCH (17:16)
[2021-04-29] MEDS ORDERED: IBUPROFEN 600 MG TAB PO PRN (20:32)
[2021-04-29] MEDS: DOCUSATE 100 MG CAP PO SCH (20:43)
[2021-04-30] MEDS: SODIUM CHLORIDE 0.9% 1,000 ML IV SCH ×2 (06:15→17:55)
[2021-04-30] MEDS ORDERED: INFLUENZA VACC HIGH-DOSE (65+) 240 MCG/0.7 ML SYRINGE IM ONE (09:00)
[2021-04-30 09:14] LABS: Basophils % (A) 0 %; Eosinophils % (A) 1 %; HCT 33.2 % (39.0-53.0); HGB 12.1 gm/dL (13.0-17.5); Hyperchromasia Marked; Lymphocytes # (A) 0.6 k/uL (1.0-4.8); Lymphocytes % (A) 15 %; MCH 32.9 pg (25.0-35.0); MCHC 36.5 g/dL (31.0-37.0); MCV 90.3 fL (80.0-100.0); Mean Platelet Volume 7.8; Monocytes # (A) 0.4 k/uL (0-1.0); Monocytes % (A) 9 %; Neutrophils % (A) 70 %; Platelet Count 147 k/uL (150-450); Poikilocytosis Slight; RBC 3.68 m/uL (4.30-5.90); RDW 12.8 % (11.5-15.5); WBC 4.2 k/uL (3.8-10.6)
[2021-04-30 09:28] LABS: African American GFR (CKD) >90 (>60 ml/min/1.73 sqM); Blood Urea Nitrogen 6 mg/dL (9-20); Calcium 8.1 mg/dL (8.4-10.2); Carbon Dioxide 25 mmol/L (22-30); Glucose 151 mg/dL (74-99); Lipase 473 U/L (23-300); Non-African American GFR(CKD) 88 (>60 ml/min/1.73 sqM); Potassium 3.8 mmol/L (3.5-5.1); Sodium 131 mmol/L (137-145)
[2021-04-30 09:41] LABS: Anion Gap 6 mmol/L; Chloride 100 mmol/L (98-107)
[2021-04-30] MEDS: DOCUSATE 100 MG CAP PO SCH ×2 (09:51→21:20)
[2021-04-30] MEDS: ASPIRIN 81 MG PO SCH (09:51)
[2021-04-30] MEDS: CLOPIDOGREL 75 MG TAB PO SCH (09:51)
--- NOTE | 2021-04-30 10:09 | P.CNNES ---
History of Present Illness Consult date: 04/30/21 Requesting physician: Hansel Valentin Reason for Consult: cristhian out CVA History of Present Illness: This is an 81-year-old gentleman with medical history of hyperlipidemia, prostate cancer status post radiation presented emergency department via EMS on 04/28/2021 for word finding difficulty and spit slurred speech concerning for stroke. Some of the history is obtained from the patient daughter who is at bedside. This past Friday around 9-10am the patient was having word finding difficulty and per the daughter he was aphasic and had right hand weakness. The patient also had generalized weakness and felt numbness of both hand. It is documented per ED that he had slurred speech as well as the patient's having lorraine e staggered gait. On upon presentation to the ED of patient positioning friend felt his speech has significantly improved and near normal as well as a the patient felt his speech was a significantly improved. Of note the patient had a recent fall and it seems on and hit the left frontal region. He said things fell and as result caused him to fall. He denies loss of consciousness. He noticed swelling over the left forehead and echymoses around the eyes but neurological was doing well and did not seek any medication attention since he had no neurological deficits. Today I was notified by the nurse he had another episode of word finding difficulty and generalized weakness as well hand numbness that was noticed by daughter today at 7ish am that resolved per the daughter. He currently denies any headaches, nausea, vomiting, weakness, numbness, word finding difficulty. He takes Aspirin 81mg 1 tab bid and take Lipitor 20mg daily as a heart preventative since there is family history of coronary artery disease. He denies any history of stroke or TIA. He denies any history of brain mass. The daughter stated he has been walking cautionsly for the past several weeks (possibly 3-4 weeks). Also he was taking Miralax at home and other medication to help have bowel movement in the past couple weeks. Some of the workup in the hospital consisted of: Initial vital signs is blood pressure of 186/83, heart rate of 46, respiratory of 18, temperature 97.7 Fahrenheit oral and pulse ox of 99% room air. For the most part the patient's blood pressure has been the range of 130s to 140s systolic and diastolic 60s to 70s. CT of the head is reported as age-related change of atrophy and probable chronic small vessel ischemia. CT angiography of the head and neck was reported as proximal right subclavian artery shows a stenosis. Correlate for at this crepitance upper extremity blood pressures. There is a carotid stenosis on the left which is hemodynamically significant. In the body of the report it is reported as at least 60-70% diameter reduction. It's reported in the proximal internal carotid artery stenosis Stroke code was activated and the ED team spoke with stroke attending (Dr. Riddle) and it was notified that patient is not tpa candidate a this time since his symptoms is more than 4-1/2 hours and the symptoms are improving as well as and recent head injury. Most recent sodium is 130, glucose is the most recent POC is 145, hemoglobin A1c is 5.1, calcium is 8.9, AST is 39 ALT is 27, Lipid panel is triglycerides 153, cholesterol is 134, LDLs 59 and HDL 44. Vitamin B12 is 340 which is low normal and serum folate is more than 20 which is considered within normal limits. TSH is 3.660. EKG is reported as sinus bradycardia with sinus arrhythmia. Minimal voltage criteria for left ventricular hypertrophy, may be normal variant. Nonspecific ST abnormality. Abnormal EKG. The primary team did not want a telemetry neurology covering physician and therefore the consult was not placed onto late in the afternoon yesterday since the the primary physician wanted the neuro hospitalist to evaluate the patient in person rather than a tele-neurologist. Because of new episode of numbness of both hands and word finding difficulty I was notified by nurse in early AM before seeing the patient and notified her to get CT head, CTA head and neck repeat since new change but was notified that the primary team did not want to pursue with it and wants instead MRI Brain. Review of Systems Review of system: The 12 point system was reviewed and apparent positive and negative per HPI. Past Medical History Past Medical History: Cancer, Hyperlipidemia Additional Past Medical History / Comment(s): CA: prostate & radiation, History of Any Multi-Drug Resistant Organisms: None Reported Additional Past Surgical History / Comment(s): colonoscopy Past Anesthesia/Blood Transfusion Reactions: No Reported Reaction Past Psychological History: No Psychological Hx Reported Smoking Status: Never smoker Past Alcohol Use History: Rare Past Drug Use History: None Reported - Past Family History Mother Family Medical History: Coronary Artery Disease (CAD) Father Family Medical History: Coronary Artery Disease (CAD) Medications and Allergies Home Medications Medication Instructions Recorded Confirmed Type Atorvastatin [Lipitor] 20 mg PO DAILY 11/16/15 04/28/21 History Ibuprofen [Motrin Ib] 400 mg PO Q8H PRN 04/28/21 04/28/21 History Latanoprost/Pf [Latanoprost 0.005% 1 drop BOTH EYES DAILY 04/28/21 04/28/21 History Eye Drop] Timolol 0.5% Ophth Soln [Timoptic 1 drop BOTH EYES DAILY 04/28/21 04/28/21 History 0.5% Ophth Soln] atenoloL [Tenormin] 12.5 - 25 mg PO DAILY PRN 04/28/21 04/28/21 History Allergies Allergy/AdvReac Type Severity Reaction Status Date / Time No Known Allergies Allergy Verified 04/28/21 13:19 Physical Examination - Vital Signs Vital Signs: Vital Signs Temp Pulse Resp BP BP Pulse Ox 04/30/21 08:00 97.7 F 65 18 190/70 100 04/30/21 03:36 97.7 F 54 L 18 138/68 97 04/30/21 02:00 67 18 04/30/21 00:00 98.0 F 67 18 138/72 98 04/29/21 20:00 98.2 F 54 L 18 144/70 98 04/29/21 17:15 54 L 18 136/66 96 04/29/21 11:40 51 L 128/74 04/29/21 10:08 97.1 F L 56 L 18 138/84 96 Intake and Output 04/29/21 04/30/21 04/30/21 22:59 06:59 14:59 Intake Total 80 800 Balance 80 800 Intake: Intake, IV Titration 800 Amount Sodium Chloride 0.9% 1, 800 000 ml @ 100 mls/hr IV . Q10H [facility] Rx#:[id number] Oral 80 Other: Voiding Method Toilet Toilet # Voids 1 1 # Bowel Movements 2 Weight 70.3 kg GENERAL: The patient is lying in bed and is not in acute distress. HENT: Echymoses periorbital bilaterally and edema over the left frontal from recent fall. CHEST: The heart rate is regular rate rhythm. No murmurs to auscultation. No carotid bruit bilaterally. LUNG: Clear to auscultation bilaterally no wheezing noted throughout. Not labored breathing. ABDOMEN/GI: Bowel sounds present in all 4 quadrants. No tenderness to palpation throughout. NEUROLOGICAL: Higher mental function: The patient is awake, alert, oriented to self, place and time. Patient is following commands. No aphasia and intact repetition (per daughter his language is at baseline). No neglect. Cranial nerves: The pupils are round, equal and reactive to light and accommodation. Visual whitaker are full to confrontation throughout. Extraocular movement is intact no nystagmus is noted. Facial sensation is normal to touch throughout. The facial strength is normal throughout. Hearing is normal bilaterally to hand rub. Tongue is midline and moved [id number] without any difficulty. No dysarthria is noted. Shoulder shrug is normal bilaterally. Motor: Gait is cautious and taking small steps. The strength is 5 over 5 throug hout. Normal tone and bulk. Cerebellum: Normal finger to nose bilaterally. Sensation: Sensation is normal to touch throughout. Reflexes (right/left): 2+ throughout. Plantars are downgoing bilaterally. Results - Laboratory Findings CBC and BMP: 04/29/21 08:46 04/30/21 08:25 Abnormal Lab Findings: Abnormal Labs 04/28/21 04/28/21 04/28/21 12:18 12:18 12:18 RBC 3.51 L Hgb 11.7 L Hct 31.4 L MCHC 37.4 H Plt Count 145 L Lymphocytes # 0.8 L Sodium 123 L Chloride 94 L BUN 7 L Glucose 130 H POC Glucose (mg/dL) Osmolality 265 L Total Protein 5.6 L Albumin 3.3 L Triglycerides Lipase 04/28/21 04/29/21 04/29/21 14:30 08:46 09:27 RBC 3.89 L Hgb 12.9 L Hct 35.2 L MCHC Plt Count Lymphocytes # 0.8 L Sodium 130 L Chloride BUN 6 L Glucose 142 H POC Glucose (mg/dL) Osmolality Total Protein 6.1 L Albumin Triglycerides 153.00 H Lipase 396 H 379 H 04/29/21 16:27 RBC Hgb Hct MCHC Plt Count Lymphocytes # Sodium Chloride BUN Glucose POC Glucose (mg/dL) 145 H Osmolality Total Protein Albumin Triglycerides Lipase Assessment and Plan Assessment: Transient Aphasia and mild dysarthria: Likely due to transient ischemic attack Left ICA stenosis of at least 60-70% per CTA Proximal right subclavian artery stenosis or CTA Mild to moderate hyponatremia (on presentation was 123 and most recent is 130) due to medication use (on Miralax etc) Bradycardia (40's) Hyperlipidemia History of prostate cancer status post radiation Plan: MRI of the brain is ordered by the primary team stat. Continue dual antiplatelets aspirin 81 mg Plavix 75 mg daily (was on home ASA 81mg 1 tab bid). I increase the Lipitor from 20 mg to 80 mg daily at bedtime. 2-D echo is ordered and is pending. I ordered carotid duplex and TSH. Continue neuro checks Continue cardiac monitoring Regarding the left ICA stenosis and a right subclavian stenosis I consulted vascular surgery team. Because of low vitamin B12 patient was started on vitamin B12 1000 g daily by the primary team and I agree with that management. We'll defer the rest of the medical management to the primary team Upon discharge the patient needs to follow-up with a neurologist as outpatient within 1-2 weeks. The plan is discussed with the patient, his daughter who is at bedside and the primary team. Thank you for the consultation. Johnathan Valiente M.D. Neuro-hospitalist Time with Patient: Greater than 30
[2021-04-30] MEDS: CITALOPRAM HYDROBROMIDE 10 MG TAB PO SCH (10:56)
--- NOTE | 2021-04-30 11:37 | US ---
EXAMINATION TYPE: US carotid duplex BILAT DATE OF EXAM: 04/30/2021 COMPARISON: CTA 04/28/2021 CLINICAL HISTORY: carotid stenosis. EXAM MEASUREMENTS: RIGHT: Peak Systolic Velocity (PSV) cm/sec ----- Right CCA: 80.1 ----- Right ICA: 97.9 ----- Right ECA: 120.8 ICA/CCA ratio: 1.3 RIGHT: End Diastole cm/sec ----- Right CCA: 7.4 ----- Right ICA: 15.5 ----- Right ECA: 10.4 LEFT: Peak Systolic Velocity (PSV) cm/sec ----- Left CCA: 87.1 ----- Left ICA: 190.4 ----- Left ECA: 161.4 ICA/CCA ratio: 2.2 LEFT: End Diastole cm/sec ----- Left CCA: 17.6 ----- Left ICA: 28.8 ----- Left ECA: 0 VERTEBRALS (direction of flow): Right Vertebral: To fro flow Left Vertebral: Antegrade Rhythm: Normal Elevated velocities seen in the left ECA, Bilateral plaque seen in the bulb and proximal ICA. IMPRESSION: 1. Atherosclerotic changes with findings suggestive of a 50-69% stenosis of the proximal left ICA. Criteria for Assigning % of Stenosis / Diameter reduction (Estimation based on the indirect measurements of the internal carotid artery velocities (ICA PSV). 1. Normal (no stenosis)=ICA PSV < 125 cm/s: ratio < 2.0: ICA EDV<40 cm/s. 2. Less than 50% stenosis=ICA PSV < 125 cm/s: ratio < 2.0: ICA EDV<40 cm/s. 3. 50 to 69% stenosis=ICA PSV of 125 to 230 cm/s: ration 2.0 ? 4.0: ICA EDV 40-100 cm/s. 4. Greater than 70% stenosis to near occlusion= ICA PSV > 230 cm/s: ratio > 4.0: ICA EDV > 100 cm/s. 5. Near occlusion= ICA PSV velocities may be low or undetectable: variable ratio and ICA EDV. 6. Total occlusion=unable to detect flow.
--- NOTE | 2021-04-30 12:17 | P.GSCN ---
History of Present Illness Consult date: 04/30/21 Reason for Consult: Left ICA stenosis, subclavian artery stenosis Requesting physician: Johnathan Valiente History of present illness: This a pleasant 81-year-old male patient with a past medical history significant for hyperlipidemia and prostate cancer status post radiation who presented to the emergency department 2 days ago with complaints of difficulty finding words and some slurred speech concerning for stroke. The patient states he was having some balance difficulty and generalized weakness. He denies one side being weaker than the other. He also had a fall 2 days prior to that all which family at the bedside states was mechanical he was reaching down and grabbed a chair that was old and he fell forward. He denies any previous history of stroke in the past or similar symptoms. Apparently per documentations the patient's symptoms had nearly resolved by the time he got to the emergency department. Home medications did include a daily 81 mg aspirin as well as Lipitor 20 mg. Patient currently denies any symptoms, he is eating breakfast. States he still has some weakness but that is bilaterally. Denies any shortness of breath, chest pain, abdominal pain, nausea, or vomiting. Brain CTA shows age-related changes of atrophy and probable chronic small vessel ischemia. CT angiogram head and neck show proximal right subclavian artery with stenosis. Correlate with discrepant upper extremity blood pressures. There is carotid stenosis on the left which is hemodynamically significant estimated at 60-70% Carotid duplex: Right ICA PSV 97.9, ICA/CCA ratio 1.3. Left ICA PSV 190.4, ICA/CCA ratio 2.2. Arthrosclerotic changes with findings suggestive of a 50-69% stenosis of the proximal left ICA. Review of Systems A 14 point review of systems was completed all pertinent positives and negatives as stated in the HPI. Past Medical History Past Medical History: Cancer, Hyperlipidemia Additional Past Medical History / Comment(s): CA: prostate & radiation, History of Any Multi-Drug Resistant Organisms: None Reported Additional Past Surgical History / Comment(s): colonoscopy Past Anesthesia/Blood Transfusion Reactions: No Reported Reaction Past Psychological History: No Psychological Hx Reported Smoking Status: Never smoker Past Alcohol Use History: Rare Past Drug Use History: None Reported - Past Family History Mother Family Medical History: Coronary Artery Disease (CAD) Father Family Medical History: Coronary Artery Disease (CAD) Medications and Allergies Home Medications Medication Instructions Recorded Confirmed Type Atorvastatin [Lipitor] 20 mg PO DAILY 11/16/15 04/28/21 History Ibuprofen [Motrin Ib] 400 mg PO Q8H PRN 04/28/21 04/28/21 History Latanoprost/Pf [Latanoprost 0.005% 1 drop BOTH EYES DAILY 04/28/21 04/28/21 History Eye Drop] Timolol 0.5% Ophth Soln [Timoptic 1 drop BOTH EYES DAILY 04/28/21 04/28/21 History 0.5% Ophth Soln] atenoloL [Tenormin] 12.5 - 25 mg PO DAILY PRN 04/28/21 04/28/21 History Allergies Allergy/AdvReac Type Severity Reaction Status Date / Time No Known Allergies Allergy Verified 04/28/21 13:19 Surgical - Exam Vital Signs Pulse Resp BP Pulse Ox 46 L 18 186/83 99 04/28/21 11:58 04/28/21 11:58 04/28/21 11:58 04/28/21 11:58 General appearance: The patient is alert, oriented, appears in no acute distress. HET: Head is normocephalic. Abrasion to the left forehead, ecchymosis surrounding bilateral eyes. Pupils are equal and reactive. Neck: Supple without lymphadenopathy. Trachea midline. Audible left carotid bruit. Heart: S1 S2. Regular rate and rhythm. Lungs: Clear to auscultation. Abdomen: Soft, nontender, nondistended. Extremities: Normal skin color and turgor. No cyanosis, rash, ulceration, clubbing, or edema. Palpable bilateral radial pulses. Neurological: No focal deficits. Strength and sensation are grossly intact. Results - Labs 04/30/21 08:25 04/30/21 08:25 Abnormal Lab Results - Last 24 Hours (Table) 04/29/21 04/29/21 04/29/21 Range/Units 08:46 09:27 16:27 RBC (4.30-5.90) m/uL Hgb (13.0-17.5) gm/dL Hct (39.0-53.0) % Plt Count (150-450) k/uL Lymphocytes # 0.8 L (1.0-4.8) k/uL Sodium (137-145) mmol/L BUN (9-20) mg/dL Glucose (74-99) mg/dL POC Glucose (mg/dL) 145 H (75-99) mg/dL Calcium (8.4-10.2) mg/dL Triglycerides 153.00 H (0.00-149.00) mg/dL Lipase (23-300) U/L 04/30/21 04/30/21 Range/Units 08:25 08:25 RBC 3.68 L (4.30-5.90) m/uL Hgb 12.1 L (13.0-17.5) gm/dL Hct 33.2 L (39.0-53.0) % Plt Count 147 L (150-450) k/uL Lymphocytes # 0.6 L (1.0-4.8) k/uL Sodium 131 L (137-145) mmol/L BUN 6 L (9-20) mg/dL Glucose 151 H (74-99) mg/dL POC Glucose (mg/dL) (75-99) mg/dL Calcium 8.1 L (8.4-10.2) mg/dL Triglycerides (0.00-149.00) mg/dL Lipase 473 H (23-300) U/L Diabetes panel 04/29/21 04/29/21 04/30/21 Range/Units 08:46 09:27 08:25 Sodium 131 L (137-145) mmol/L Potassium 3.8 (3.5-5.1) mmol/L Chloride 100 (98-107) mmol/L Carbon Dioxide 25 (22-30) mmol/L BUN 6 L (9-20) mg/dL Creatinine 0.71 (0.66-1.25) mg/dL Glucose 151 H (74-99) mg/dL Hemoglobin A1c 5.1 (4.0-6.0) % Calcium 8.1 L (8.4-10.2) mg/dL Triglycerides 153.00 H (0.00-149.00) mg/dL HDL Cholesterol 44.40 (40.00-60.00) mg/dL Calcium panel 04/30/21 Range/Units 08:25 Calcium 8.1 L (8.4-10.2) mg/dL Pituitary panel 04/30/21 Range/Units 08:25 Sodium 131 L (137-145) mmol/L Potassium 3.8 (3.5-5.1) mmol/L Chloride 100 (98-107) mmol/L Carbon Dioxide 25 (22-30) mmol/L BUN 6 L (9-20) mg/dL Creatinine 0.71 (0.66-1.25) mg/dL Glucose 151 H (74-99) mg/dL Calcium 8.1 L (8.4-10.2) mg/dL Adrenal panel 04/30/21 Range/Units 08:25 Sodium 131 L (137-145) mmol/L Potassium 3.8 (3.5-5.1) mmol/L Chloride 100 (98-107) mmol/L Carbon Dioxide 25 (22-30) mmol/L BUN 6 L (9-20) mg/dL Creatinine 0.71 (0.66-1.25) mg/dL Glucose 151 H (74-99) mg/dL Calcium 8.1 L (8.4-10.2) mg/dL - Imaging Comments: See HPI for details Assessment and Plan Assessment: 1. Left ICA stenosis 60-70% per CTA, 50-69% per carotid duplex 2. Transient aphasia 3. Generalized weakness 4. Proximal right subclavian artery stenosis Plan: 1. CT angiogram head and neck as well as carotid ultrasound reviewed with Dr. Durand 2. Agree with dual antiplatelet therapy of aspirin and Plavix 3. Continue Lipitor 80 mg daily 4. Await MRI results and recommendations per neurology 5. Further recommendations forthcoming Thank you for this consultation, and allowing us take part in the plan of care of your patient during his hospital stay. The impression and plan of care has been dictated as directed. Dr. Melton I performed a history and examination of this patient, discussed the same with the dictator. I agree with the dictator's note ,documented as a scribe. Any additional findings or plans will be noted.
--- NOTE | 2021-04-30 12:53 | P.CRDCN ---
History of Present Illness Consult date: 04/30/21 History of present illness: HISTORY OF PRESENT ILLNESS: This is a 81-year-old male with a past medical history significant for prostate cancer, hypertension, and hyperlipidemia. Patient does not follow with a tuna purse seiner. We have been asked to see the patient in consultation for bradycardia and pauses. Patient examined at the bedside. Patient is admitted to the hospital due to a possible TIA and is being followed closely by neurology. Telemetry reviewed revealing sinus bradycardia with occasional pauses up to 2 seconds. Patient was prescribed atenolol on an outpatient basis which has since been discontinued. Patient has no further significant pauses. He denies chest pain or pressure. He denies shortness of breath. He denies dizziness or lightheadedness. EKG reveals sinus bradycardia with a heart rate of 51. Chest xray expiratory rotated exam. Accentuation in the appearance of the heart may be technical. Follow-up as indicated. CT brain: Age-related changes of atrophy and probable chronic small vessel ischemia Carotid Doppler: 50-69% stenosis of the proximal left internal carotid artery Laboratory data: WBC 4.2. Hemoglobin 12.1. Platelet count 147. Sodium 131. Potassium 3.8. BUN 6. Creatinine 0.71. Current home cardiac medications include atorvastatin 20 mg daily, atenolol 12.525 mg daily as needed REVIEW OF SYSTEMS: At the time of my exam: CONSTITUTIONAL: Denies fever or chills. HEENT: Denies blurred vision, vision changes, or eye pain. Denies hemoptysis CARDIOVASCULAR: Denies chest pain. Denies orthopnea. Denies PND. Denies palpitations RESPIRATORY: Denies shortness of breath. GASTROINTESTINAL: Denies abdominal pain. Denies nausea or vomiting. HEMATOLOGIC: Denies bleeding disorders. GENITOURINARY: Denies any blood in urine. SKIN: Denies pruitis. Denies rash. PHYSICAL EXAM: VITAL SIGNS: Reviewed. GENERAL: Well-developed in no acute distress. HEENT: Head is normocephalic. Bruise noted to left orbital region. Pupils are equal, round. Sclerae anicteric. Mucous membranes of the mouth are moist. Neck supple. No JVD or thyromegaly LUNGS: Respirations even and unlabored. Lungs essentially clear to auscultation bilaterally. HEART: Regular rate and rhythm. S1 and S2 heard. + Systolic murmur ABDOMEN: Soft. Nondistended. Nontender. EXTREMITIES: Normal range of motion. No clubbing or cyanosis. Peripheral pulses intact. No lower extremity edema NEUROLOGIC: Awake and alert. Oriented x 3. ASSESSMENT: TIA Bradycardia with sinus pauses, improved after DC of beta gi Left internal carotid artery stenosis Hypertension Hyperlipidemia History of prostate cancer Systolic murmur suggestive of aortic stenosis PLAN: Obtain 2D echo to assess cardiac structure and function Check TSH Continue to hold beta blockers Continue telemetry monitoring Neurology following Further recommendations pending patient course Nurse practitioner note has been reviewed by physician. Signing provider agrees with the documented findings, assessment, and plan of care. Past Medical History Past Medical History: Cancer, Hyperlipidemia Additional Past Medical History / Comment(s): CA: prostate & radiation, History of Any Multi-Drug Resistant Organisms: None Reported Additional Past Surgical History / Comment(s): colonoscopy Past Anesthesia/Blood Transfusion Reactions: No Reported Reaction Past Psychological History: No Psychological Hx Reported Smoking Status: Never smoker Past Alcohol Use History: Rare Past Drug Use History: None Reported - Past Family History Mother Family Medical History: Coronary Artery Disease (CAD) Father Family Medical History: Coronary Artery Disease (CAD) Medications and Allergies Home Medications Medication Instructions Recorded Confirmed Type Atorvastatin [Lipitor] 20 mg PO DAILY 11/16/15 04/28/21 History Ibuprofen [Motrin Ib] 400 mg PO Q8H PRN 04/28/21 04/28/21 History Latanoprost/Pf [Latanoprost 0.005% 1 drop BOTH EYES DAILY 04/28/21 04/28/21 History Eye Drop] Timolol 0.5% Ophth Soln [Timoptic 1 drop BOTH EYES DAILY 04/28/21 04/28/21 History 0.5% Ophth Soln] atenoloL [Tenormin] 12.5 - 25 mg PO DAILY PRN 04/28/21 04/28/21 History Allergies Allergy/AdvReac Type Severity Reaction Status Date / Time No Known Allergies Allergy Verified 04/28/21 13:19 Physical Exam Vitals: Vital Signs Temp Pulse Resp BP BP Pulse Ox 04/30/21 08:00 97.7 F 65 18 190/70 100 04/30/21 03:36 97.7 F 54 L 18 138/68 97 04/30/21 02:00 67 18 04/30/21 00:00 98.0 F 67 18 138/72 98 04/29/21 20:00 98.2 F 54 L 18 144/70 98 04/29/21 17:15 54 L 18 136/66 96 Intake and Output 04/29/21 04/30/21 04/30/21 22:59 06:59 14:59 Intake Total 80 800 118 Balance 80 800 118 Intake: Intake, IV Titration 800 Amount Sodium Chloride 0.9% 1, 800 000 ml @ 100 mls/hr IV . Q10H [facility] Rx#:[id number] Oral 80 118 Other: Voiding Method Toilet Toilet Toilet # Voids 1 1 # Bowel Movements 2 Weight 70.3 kg Results 04/30/21 08:25 04/30/21 08:25 Lipids 04/29/21 Range/Units 09:27 Triglycerides 153.00 H (0.00-149.00) mg/dL Cholesterol 134.00 (0.00-200.00) mg/dL HDL Cholesterol 44.40 (40.00-60.00) mg/dL Cholesterol/HDL Ratio 3.02 Ratio CBC 04/30/21 Range/Units 08:25 WBC 4.2 (3.8-10.6) k/uL RBC 3.68 L (4.30-5.90) m/uL Hgb 12.1 L (13.0-17.5) gm/dL Hct 33.2 L (39.0-53.0) % Plt Count 147 L (150-450) k/uL Comprehensive Metabolic Panel 04/30/21 Range/Units 08:25 Sodium 131 L (137-145) mmol/L Potassium 3.8 (3.5-5.1) mmol/L Chloride 100 (98-107) mmol/L Carbon Dioxide 25 (22-30) mmol/L BUN 6 L (9-20) mg/dL Creatinine 0.71 (0.66-1.25) mg/dL Glucose 151 H (74-99) mg/dL Calcium 8.1 L (8.4-10.2) mg/dL Current Medications Generic Name Dose Route Start Last Admin Trade Name Freq PRN Reason Stop Dose Admin Aspirin 81 mg 04/29/21 09:00 04/30/21 09:51 Aspirin 81 Mg PO 81 mg DAILY [facility] Administration Atorvastatin Calcium 80 mg 04/30/21 21:00 Atorvastatin 80 Mg Tab PO HS TUSHAR Citalopram Hydrobromide 10 mg 04/29/21 14:45 04/30/21 10:56 Citalopram Hydrobromide 10 Mg Tab PO 10 mg DAILY TUSHAR Administration Clopidogrel Bisulfate 75 mg 04/29/21 11:15 04/30/21 09:51 Clopidogrel 75 Mg Tab PO 75 mg DAILY TUSHAR Administration Docusate Sodium 100 mg 04/29/21 21:00 04/30/21 09:51 Docusate 100 Mg Cap PO 100 mg BID TUSHAR Administration Sodium Chloride 1,000 mls @ 100 mls/hr 04/28/21 13:45 04/30/21 06:15 Saline 0.9% IV 100 mls/hr .Q10H TUSHAR Administration Ibuprofen 600 mg 04/29/21 20:32 04/29/21 20:42 Ibuprofen 600 Mg Tab PO 600 mg QID PRN Administration Mild Pain Latanoprost 1 drops 04/29/21 09:00 04/29/21 10:40 Latanoprost 0.005% Ophth Drops 2.5 Ml Btl BOTH EYES 1 drops DAILY TUSHAR Administration Lisinopril 2.5 mg 04/28/21 21:00 04/30/21 09:51 Lisinopril 2.5 Mg Tab PO 2.5 mg BID TUSHAR Administration Magnesium Hydroxide 2,400 mg 04/29/21 06:05 04/29/21 06:29 Magnesium Hydroxide 2,400 Mg/10 Ml Cup PO 2,400 mg ONCE PRN Administration Constipation Timolol Maleate 1 drops 04/29/21 09:00 04/29/21 10:40 Timolol 0.5% Ophth Drops 5 Ml Btl BOTH EYES 1 drops DAILY TUSHAR Administration Intake and Output 04/29/21 04/30/21 04/30/21 22:59 06:59 14:59 Intake Total 80 800 118 Balance 80 800 118 Intake: Intake, IV Titration 800 Amount Sodium Chloride 0.9% 1, 800 000 ml @ 100 mls/hr IV . Q10H [facility] Rx#:[id number] Oral 80 118 Other: Voiding Method Toilet Toilet Toilet # Voids 1 1 # Bowel Movements 2 Weight 70.3 kg 04/30/21 08:25 04/30/21 08:25
--- NOTE | 2021-04-30 13:41 | MR ---
EXAMINATION TYPE: MR brain wo/w con DATE OF EXAM: 04/30/2021 COMPARISON: CT brain 04/28/2021 HISTORY: Neuro status changes, speech difficulties, generalized weakness TECHNIQUE: Multiplanar, multisequence images of the brain and brainstem is performed without and with IV contras t, utilizing 7 mL intravenous Gadavist . FINDINGS: Diffusion weighted images demonstrate no evidence of a recent infarct or other diffusion ab normality. There is no extra-axial fluid collection. Blooming artifact is noted along the basal gang marion on the left likely related to calcification seen on CT, there is corresponding low signal on T1-w eighted images. Confluent and scattered hyperintensities present in the pericallosal, periventricular and subcortical white matter on inversion recovery T2-weighted sequences. The ventricular system and cisternal spaces are normal in size and appearance. The brain volume is age appropriate, there is a ge-related atrophy. Midline structures demonstrate normal morphology. The craniocervical junction appears within normal limits. Post contrast images demonstrate no abnormal enhancement. The dural venous sinuses appear pa tent. The visualized sinuses are remarkable for some inflammatory change in ethmoid air cells and the globes are intact. IMPRESSION: Age-related atrophy and chronic small vessel ischemic change
[2021-04-30] MEDS: LATANOPROST 0.005% OPHTH DROPS 2.5 ML BTL BOTH EYES SCH (14:15)
[2021-04-30] MEDS: TIMOLOL 0.5% OPHTH DROPS 5 ML BTL BOTH EYES SCH (14:15)
[2021-04-30 15:24] LABS: Spherocytes Present
[2021-04-30] MEDS ORDERED: MAGNESIUM HYDROXIDE 2,400 MG/10 ML CUP PO PRN (15:48)
[2021-04-30] MEDS: ATORVASTATIN 80 MG TAB PO SCH (21:18)
--- NOTE | 2021-04-30 23:01 | PN ---
PROGRESS NOTE DATE OF SERVICE: 04/30/2021 Today the patient was seen and evaluated, [id number] in the morning as well as at lunchtime, twice, as well as discussion between the patient and his daughter, DrTerrance , who is an human development professor, as well as his son, who is in internal medicine, Dr. Rich Lanza; he has been following and directing the patient's care as well. This morning I got a call from the hospital about the patient's change of mental status and slurred speech. With this event, we consulted the neurologist, Dr. Valiente, and we obtained an MRI to clarify the issue. I did talk to Dr. Perez, the radiologist, about whether the patient was developing a stroke, in progress, and whether the MRI with or without contrast would be more helpful than repeat CT angiogram, which the patient had on admission. I stayed with the neurologist until he finished the neurologic exam and the neurologist, Dr. Johnathan Valiente, ordered a carotid duplex study. The result was elevated velocity in the left CCA and bilateral plaque in the bulb with atherosclerotic changes, findings suggestive of 50% to 69% proximal left internal carotid. He also ordered the vascular surgeon to see the patient because of the right subclavian stenosis and the left carotid artery stenosis by the CTA and he also agreed and ordered the MRI, which proceeded today at 12:30 p.m. Subsequently the MRI was not conclusive, with the questionable left internal capsule. Reviewing of the CT of the abdomen showed that the patient has a normal liver. There is hypodensity in the gallbladder mentioned as due to excretion of the contrast. Also it stated that there is a mild prominent appearance of the pancreatic head in the axial image 34 and the coronal image 47. They stated that could be a normal variant. No evidence of disruption of the local plan to suggest tumor, but followup was suggested to assess for stability. The spleen is normal and the adrenal gland was normal. The CT scan found also facet arthropathy and minimal listhesis, grade 1, on L5-S1, and he had some spinal curvature and superior endplate L4 on the right lucent area, and inferior endplate of lumbar 3 showed similar appearance; and that could represent Schmorl's node formation. The patient also had anterior osteophyte in the thoracic spine with diffuse idiopathic skeletal hyperostosis. MRI of the pancreas was recommended in the future. The CT angiogram report stated that he had a proximal right subclavian artery showing stenosis, and the carotid stenosis on the left was considered hemodynamically significant. The patient subsequently had ultrasound and was seen by the vascular surgeon of [facility], Dr. Parish. The brain itself or the CT scan angiogram of the brain noted impression: Age-related changes of atrophy with probable chronic small-vessel ischemia. Today the MRI was done with contrast and the results are mentioned in the first part of this dictation. In the afternoon I received a call from the son of the patient, who is a physician, and he stated that his dad noticed blood in the stool. At this time we ordered stool for Hemoccult. The initial one was negative. We also ordered consultation with Dr. Makenna Mayer, sheep farmer, for evaluation. She was planning already to do a colonoscopy for him in late April. I did speak to Dr. Rich Lanza, the patient's son, and I discussed with him this plan. He agreed. Also his daughter, because of his sluggishness and short steps and feeling generalized weakness, she requested a cortisol level in a.m., which is already ordered. The patient had mild hyperglycemia and has been checked with the POC glucose and covered with insulin to scale as well. Dr. Johnathan Valiente, the neurologist, also increased his lipid profile to 80 mg. Because of his pauses on the rhythm strip on the insurance policy clerk, consultation with Cardiology was requested and we ordered also an echocardiogram. However, he was seen by the nurse practitioner and we did not see the opinion of the physician lining printer yet. On physical exam, patient is conscious, alert, and he is oriented. However, he had a shuffling gait. He had generalized weakness. His speech is still not completely better. The question of a TIA or stroke is still valid in spite of these clinical data, as Dr. Valiente, the neurologist, also suggests. On exam, his pupils are equal, reactive. Extraocular muscle movement is intact. He is able to swallow and whistle and show his teeth. All the cranial nerve movement was intact. There was no tremor or shakiness on extended arm. The neck was supple. No JVD. No lymphadenopathy. No thyromegaly. Trachea midline. His thyroid function is normal. The chest was clear to auscultation and percussion. No wheezes. No rhonchi. The heart was regular sinus rhythm except for bradycardia, and we held the beta blockers until seen by the lining printer and evaluated. The abdomen is soft, still with some distention. No pain, however, on palpation on the 4 quadrants or suprapubic, but he had a feeling of wanting to go to the bathroom to have a bowel movement, but he could not get anything out. Requesting milk of magnesia, and we gave him today one dose yesterday one dose. I did discuss that with his son, who is a physician, Internal Medicine. 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 However, that was done in 08/26/2005, which is late for these symptoms. He was planned with Dr. Mayer to have colonoscopy. With this finding of blood in the stool, we will consult Dr. Mayer. His extremities are normal, with positive pulses. He is able to walk to the bathroom with assistance. He also hydrated. ASSESSMENT: The hyponatremia has been markedly improved today with sodium of 131, and his urine sodium was 60. We continue the hydration. Meanwhile, will obtain the serum cortisol level tomorrow, and asking Dr. Mayer tomorrow. If everything is stable and the patient is stable, plan for discharge after the opinion of Dr. Mayer; or if she needs to do any invasive procedure. I did communicate that with Dr. Rich Lanza, who is the son of Dr. Pool Hernandez. MMODL / MARIXAN: [id number] /
[2021-05-01] MEDS: SODIUM CHLORIDE 0.9% 1,000 ML IV SCH ×3 (04:00→22:48)
--- NOTE | 2021-05-01 08:00 | ECHOF ---
Referral Reason:Thrombus MEASUREMENTS -------- HEIGHT: 165.1 cm WEIGHT: 69.9 kg BP: IVSd: 1.1 cm (0.6 - 1.1) LVIDd: 4.6 cm (3.9 - 5.3) LVPWd: 1.3 cm (0.6 - 1.1) IVSs: 1.7 cm LVIDs: 2.4 cm LVPWs: 1.4 cm LAESV Index (A-L): 24.56 ml/m Ao Diam: 2.7 cm (2.0 - 3.7) AV Cusp: 1.7 cm (1.5 - 2.6) LA Diam: 4.2 cm (2.7 - 3.8) MV EXCURSION: 14.924 mm (> 18.000) MV EF SLOPE: 84 mm/s (70 - 150) EPSS: 0.3 cm MV E Robert: 0.76 m/s MV DecT: 189 ms MV A Robert: 1.17 m/s MV E/A Ratio: 0.65 AV maxP.77 mmHg AV meanP.42 mmHg RAP: 5.00 mmHg RVSP: 17.37 mmHg FINDINGS -------- Sinus rhythm. This was a technically good study. LV size, wall thickness and systolic function are normal, with an EF greater than 55%. The left janelle tricular size is normal. The right ventricle is normal in size. Normal LA size by volume 22+/-6 ml/m2. The right atrial size is normal. There is mild aortic regurgitation. There is mild aortic stenosis present. Peak/mean gradient acr oss the Aortic Valve is 20.77mmHg / 9.42mmHg. The mitral valve leaflets are mildly thickened. Mild mitral annular calcification present. Mild m itral regurgitation is present. Mild tricuspid regurgitation present. Right ventricular systolic pressure is normal at < 35 mmHg. There is no pulmonic regurgitation present. There is no pericardial effusion. CONCLUSIONS -------- 1. LV size, wall thickness and systolic function are normal, with an EF greater than 55%. 2. The left ventricular size is normal. 3. The right ventricle is normal in size. 4. Normal LA size by volume 22+/-6 ml/m2. 5. The right atrial size is normal. 6. There is mild aortic regurgitation. 7. There is mild aortic stenosis present. 8. Peak/mean gradient across the Aortic Valve is 20.77mmHg / 9.42mmHg. 9. The mitral valve leaflets are mildly thickened. 10. Mild mitral annular calcification present. 11. Mild mitral regurgitation is present. 12. Mild tricuspid regurgitation present. 13. There is no pericardial effusion. SUPERINTENDENT SALES: Crystal Frazier RDCS
[2021-05-01 08:31] LABS: African American GFR (CKD) >90 (>60 ml/min/1.73 sqM); Anion Gap 5 mmol/L; Blood Urea Nitrogen 4 mg/dL (9-20); Calcium 8.1 mg/dL (8.4-10.2); Carbon Dioxide 26 mmol/L (22-30); Chloride 102 mmol/L (98-107); Glucose 139 mg/dL (74-99); Non-African American GFR(CKD) 89 (>60 ml/min/1.73 sqM); Sodium 133 mmol/L (137-145)
[2021-05-01] MEDS ORDERED: NA PHOS,M-B/NA PHOS,DI-BA 133 ML ENEMA RECTAL ONE (08:45)
[2021-05-01] MEDS: CLOPIDOGREL 75 MG TAB PO SCH (09:03)
[2021-05-01] MEDS: DOCUSATE 100 MG CAP PO SCH ×2 (09:14→20:47)
[2021-05-01] MEDS: LATANOPROST 0.005% OPHTH DROPS 2.5 ML BTL BOTH EYES SCH (09:14)
[2021-05-01] MEDS: CITALOPRAM HYDROBROMIDE 10 MG TAB PO SCH (09:14)
[2021-05-01] MEDS: TIMOLOL 0.5% OPHTH DROPS 5 ML BTL BOTH EYES SCH (09:14)
[2021-05-01] MEDS: ASPIRIN 325 MG TAB PO SCH (09:16)
[2021-05-01] MEDS: ASPIRIN 81 MG PO SCH (09:25)
[2021-05-01 09:34] LABS: Basophils % (A) 1 %; Eosinophils % (A) 1 %; HCT 31.2 % (39.0-53.0); HGB 11.9 gm/dL (13.0-17.5); Hyperchromasia Marked; Lymphocytes # (A) 0.6 k/uL (1.0-4.8); Lymphocytes % (A) 12 %; MCH 33.8 pg (25.0-35.0); MCV 88.5 fL (80.0-100.0); Mean Platelet Volume 8.1; Monocytes # (A) 0.4 k/uL (0-1.0); Monocytes % (A) 9 %; Neutrophils # (A) 3.7 k/uL (1.3-7.7); Neutrophils % (A) 74 %; Platelet Count 185 k/uL (150-450); Poikilocytosis Slight; RBC 3.52 m/uL (4.30-5.90); RDW 13.5 % (11.5-15.5)
[2021-05-01 09:35] LABS: MCHC 38.2 g/dL (31.0-37.0)
--- NOTE | 2021-05-01 10:58 | P.PN ---
Subjective Progress Note Date: 05/01/21 Principal diagnosis: ICA stenosis Patient is seen and examined standing up. Slightly off balance on his feet. No acute changes through the night. He currently denies any focal deficits. States most of his problem at this time is stomach discomfort along with constipation. MRI of the brain shows age-related atrophy and chronic small vessel ischemic change. Objective - Vital Signs Vital signs: Vital Signs Temp 97.7 F 05/01/21 04:00 Pulse 62 05/01/21 04:00 Resp 16 05/01/21 04:00 BP 176/79 05/01/21 04:00 Pulse Ox 99 05/01/21 04:00 Intake & Output 04/30/21 05/01/21 05/01/21 18:59 06:59 18:59 Intake Total 918 Balance 918 Weight 70.3 kg Intake: Intake, IV Titration 800 Amount Sodium Chloride 0.9% 1, 800 000 ml @ 100 mls/hr IV . Q10H [facility] Rx#:[id number] Oral 118 Other: Voiding Method Toilet Toilet # Voids 2 1 1 # Bowel Movements 1 - Exam General appearance: The patient is alert, oriented, in no acute distress. HET: Head is normocephalic, abrasion to left side of forehead, under bilateral eyes with ecchymosis. Pupils are equal and reactive. Neck: Supple without lymphadenopathy. Trachea midline. Heart: S1 S2. Regular rate and rhythm. Lungs: Clear to auscultation. Abdomen: Soft, nontender, nondistended. Extremities: Normal skin color and turgor. No cyanosis, rash, ulceration, clubbing, or edema. Neurological: No focal deficits. Strength and sensation are grossly intact. - Labs CBC & Chem 7: 05/01/21 07:46 05/01/21 07:46 Labs: Abnormal Lab Results - Last 24 Hours (Table) 04/30/21 04/30/21 Range/Units 08:25 08:25 RBC 3.68 L (4.30-5.90) m/uL Hgb 12.1 L (13.0-17.5) gm/dL Hct 33.2 L (39.0-53.0) % Plt Count 147 L (150-450) k/uL Lymphocytes # 0.6 L (1.0-4.8) k/uL Sodium 131 L (137-145) mmol/L BUN 6 L (9-20) mg/dL Glucose 151 H (74-99) mg/dL Calcium 8.1 L (8.4-10.2) mg/dL Lipase 473 H (23-300) U/L Assessment and Plan Assessment: 1. Left ICA stenosis 60-70% per CTA, 50-69% per carotid duplex 2. Transient aphasia, MRI negative for any acute infarct. Shows age-related atrophy and chronic small vessel ischemic change. 3. Generalized weakness 4. Proximal right subclavian artery stenosis Plan: 1. CT angiogram head and neck as well as carotid ultrasound reviewed by Dr. Parish 2. Continue Lipitor 80 mg daily and daily low-dose aspirin. Discussed with neurology and patient may hold off on Plavix until after further evaluation with gastroenterology and. scheduled colonoscopy 3. There is no indication for any vascular surgical intervention at this time. MRI is negative for acute infarct. Discussed with patient and family recommendation for outpatient carotid surveillance. 4. Plan of care was also discussed with neurology who is in agreement that patient may hold Plavix at this time. Thank you for this consultation, and allowing us take part in the plan of care of your patient during his hospital stay. The impression and plan of care has been dictated as directed. Dr. Parish I performed a history and examination of this patient, discussed the same with the dictator. I agree with the dictator's note ,documented as a scribe. Any additional findings or plans will be noted.
--- NOTE | 2021-05-01 11:04 | P.PN ---
Subjective Progress Note Date: 05/01/21 Patient seen at bedside and he is accompanied with his daughter. The patient states that he's doing the well denies any further neurological complaints. Patient stated that he is still having some abdominal issues and that there was a question whether there was a any blood in the stool but fecal occult blood test was negative in our facility Objective - Vital Signs Vital signs: Vital Signs Temp 98.1 F 05/01/21 08:00 Pulse 78 05/01/21 08:00 Resp 18 05/01/21 08:00 BP 179/80 05/01/21 08:00 Pulse Ox 99 05/01/21 08:00 Intake & Output 04/30/21 05/01/21 05/01/21 18:59 06:59 18:59 Intake Total 918 120 Balance 918 120 Weight 70.3 kg Intake: Intake, IV Titration 800 Amount Sodium Chloride 0.9% 1, 800 000 ml @ 100 mls/hr IV . Q10H [facility] Rx#:[id number] Oral 118 120 Other: Voiding Method Toilet Toilet Toilet # Voids 2 1 1 # Bowel Movements 1 - Exam GENERAL: The patient is lying in bed and is not in acute distress. HENT: Echymoses periorbital bilaterally and edema over the left frontal from recent fall. NEUROLOGICAL: Higher mental function: The patient is awake, alert, oriented to self, place and time. Patient is following commands. No aphasia and intact repetition (per daughter his language is at baseline). No neglect. Cranial nerves: The pupils are round, equal and reactive to light and accommodation. Visual whitaker are full to confrontation throughout. Extraocular movement is intact no nystagmus is noted. Facial sensation is normal to touch throughout. The facial strength is normal throughout. Hearing is normal bilaterally to hand rub. Tongue is midline and moved [id number] without any difficulty. No dysarthria is noted. Shoulder shrug is normal bilaterally. Motor: Gait is cautious and taking small steps. The strength is 5 over 5 throughout. Normal tone and bulk. Cerebellum: Normal finger to nose bilaterally. Sensation: Sensation is normal to touch throughout. Reflexes (right/left): 2+ throughout. Plantars are downgoing bilaterally. WORK-UP: CT of the head is reported as age-related change of atrophy and probable chronic small vessel ischemia. CT angiography of the head and neck was reported as proximal right subclavian artery shows a stenosis. Correlate for at this crepitance upper extremity blood pressures. There is a carotid stenosis on the left which is hemodynamically significant. In the body of the report it is reported as at least 60-70% diameter reduction. It's reported in the proximal internal carotid artery stenosis Stroke code was activated and the ED team spoke with stroke attending (Dr. Riddle) and it was notified that patient is not tpa candidate a this time since his symptoms is more than 4-1/2 hours and the symptoms are improving as well as and recent head injury. MR the brain is reported as age-related atrophy and chronic small vessel ischemic change. No evidence of recent infarct or other diffusion abnormality in the body they reported. 2-D echo was reported as left ventricle size is normal. Normal left atrial size by volume. Ejection fraction greater than 55%. Carotid duplex was reported as atherosclerotic change with findings suggestive of 50-69% stenosis of the proximal left ICA. Lipid panel is triglycerides 153, cholesterol is 134, LDLs 59 and HDL 44. Vitamin B12 is 340 which is low normal and serum folate is more than 20 which is considered within normal limits. TSH is 3.660. - Labs CBC & Chem 7: 05/01/21 07:46 05/01/21 07:46 Labs: Abnormal Lab Results - Last 24 Hours (Table) 05/01/21 05/01/21 05/01/21 Range/Units 07:46 07:46 07:46 RBC 3.52 L (4.30-5.90) m/uL Hgb 11.9 L (13.0-17.5) gm/dL Hct 31.2 L (39.0-53.0) % MCHC 38.2 H (31.0-37.0) g/dL Sodium 133 L (137-145) mmol/L BUN 4 L (9-20) mg/dL Glucose 139 H (74-99) mg/dL Calcium 8.1 L (8.4-10.2) mg/dL Lipase 407 H (23-300) U/L Assessment and Plan Assessment: Transient Aphasia and mild dysarthria: Likely due to transient ischemic attack Left ICA stenosis of at least 60-70% per CTA but is 50-69% stenosis on carotid duplex Proximal right subclavian artery stenosis or CTA Mild to moderate hyponatremia (on presentation was 123 and most recent is 130) due to medication use (on Miralax etc) Generalized weakness Bradycardia (40's) Hyperlipidemia History of prostate cancer status post radiation Plan: * Because of abdominal issues and that questionable blood in the stool. Therefore, stopped dual antiplatelets and we'll place the patient on aspirin 325mg daily for now. Once cleared by GI team then the recommend starting the patient on aspirin 81 mg and Plavix 75 mg daily. If the patient has an any falls down the line recommend for the patient to be on Plavix rather than dual antiplatelets. * Continue Lipitor 80 mg daily at bedtime for secondary stroke prophylaxis. * Continue neuro checks * Continue cardiac monitoring * Regarding the left ICA stenosis and a right subclavian stenosis, vascular surgery team is on board. For now no intervention. * Because of low vitamin B12 patient was started on vitamin B12 1000 g daily by the primary team and I agree with that management. * Discussed with neurology team is consulted. * We'll defer the rest of the medical management to the primary team * Upon discharge the patient needs to follow-up with a neurologist as outpatient within 1-2 weeks. The plan is discussed with the patient, his daughter who is at bedside. There is no further neurological workup. Patient is clear for discharge from a neurological standpoint. Johnathan Valiente M.D. Neuro-hospitalist Time with Patient: Less than 30
[2021-05-01 11:24] LABS: Polychromasia Present
[2021-05-01] MEDS ORDERED: HYDROCORTISONE ENEMA 100 MG/60 ML RECTAL ONE (11:30)
--- NOTE | 2021-05-01 11:43 | P.CONS ---
History of Present Illness - Reason for Consult Consult date: 05/01/21 Abdominal pain, constipation Requesting physician: Hansel Valentin - Chief Complaint Weakness - History of Present Illness this is an 81-year-old male who presented to the emergency department several days ago with complaints of weakness along with some speech difficulty. He was seen and evaluated by neurology and vascular surgery. Patient underwent an MRI that shows no evidence of acute infarct. He does have some carotid stenosis and therefore a daily aspirin and Plavix is recommended. However neurology has stated that the patient can hold off on Plavix at this time. The patient is also with complaints of abdominal pain and constipation. He has a past medical history of prostate cancer status post radiation and has had issues with constipation and rectal bleeding since his radiation. He states that his constipation and abdominal discomfort has become worse where he feels that he is bloated and having a decreased appetite. Gastroenterology was consulted to further evaluate. Patient is scheduled for outpatient colonoscopy with Dr. Mayer on May 11. His last colonoscopy was on 11/17/[address] Mclaughlin which was normal.the patient's daughter states that she thought it looked like he had some blood in his stool yesterday however his stool occult blood was negative. He denies any nausea or vomiting. He also had a CT of the abdomen and pelvisthat showed a mildly prominent appearance of the pancreatic head, this could be normal variant, there is no evident disruption of fat plane to suggest tumor, follow-up suggested to assess for stability. Review of Systems REVIEW OF SYSTEMS: CARDIOPULMONARY: No chest pain or shortness of breath. Gastrointestinal: Abdominal bloating No nausea or vomiting. No hematemesis, coffee-ground emesis. No rectal bleeding, or melena. Questionable maroon colored stool. GENITOURINARY: No dysuria or hematuria. MUSCULOSKELETAL: Reports normal range of motion., Joint pain. SKIN: No rashes. No jaundice. ENDOCRINE: No chills, fevers. No excessive weight gain or loss. No polydipsia or polyuria. PSYCHIATRIC: Unremarkable. NEUROLOGY: On admission patient complained of weakness and difficulty with words. Denies dizziness, headache. ENT: Vision unremarkable. CONSTITUTIONAL: No recent weight loss. No fever, chills, night sweats. Decreased appetite. Past Medical History Past Medical History: Cancer, Hyperlipidemia Additional Past Medical History / Comment(s): CA: prostate & radiation, History of Any Multi-Drug Resistant Organisms: None Reported Additional Past Surgical History / Comment(s): colonoscopy Past Anesthesia/Blood Transfusion Reactions: No Reported Reaction Past Psychological History: No Psychological Hx Reported Smoking Status: Never smoker Past Alcohol Use History: Rare Past Drug Use History: None Reported - Past Family History Mother Family Medical History: Coronary Artery Disease (CAD) Father Family Medical History: Coronary Artery Disease (CAD) Medications and Allergies Home Medications Medication Instructions Recorded Confirmed Type Atorvastatin [Lipitor] 20 mg PO DAILY 11/16/15 04/28/21 History Ibuprofen [Motrin Ib] 400 mg PO Q8H PRN 04/28/21 04/28/21 History Latanoprost/Pf [Latanoprost 0.005% 1 drop BOTH EYES DAILY 04/28/21 04/28/21 History Eye Drop] Timolol 0.5% Ophth Soln [Timoptic 1 drop BOTH EYES DAILY 04/28/21 04/28/21 History 0.5% Ophth Soln] atenoloL [Tenormin] 12.5 - 25 mg PO DAILY PRN 04/28/21 04/28/21 History Allergies Allergy/AdvReac Type Severity Reaction Status Date / Time No Known Allergies Allergy Verified 04/28/21 13:19 Physical Exam Vitals: Vital Signs Temp Pulse Resp BP Pulse Ox 05/01/21 04:00 97.7 F 62 16 176/79 99 04/30/21 23:35 97.7 F 63 17 168/72 99 04/30/21 20:30 98.3 F 64 16 170/70 99 04/30/21 16:00 98.0 F 62 16 132/70 100 04/30/21 13:55 57 L 18 04/30/21 13:38 97.8 F 57 L 18 142/60 98 Intake and Output 04/30/21 05/01/21 05/01/21 22:59 06:59 14:59 Intake Total 800 Balance 800 Intake: Intake, IV Titration 800 Amount Sodium Chloride 0.9% 1, 800 000 ml @ 100 mls/hr IV . Q10H [facility] Rx#:[id number] Other: Voiding Method Toilet Toilet # Voids 1 1 1 # Bowel Movements 1 1 General appearance: The patient is alert, oriented, appears in no acute distress. HET: Head is normocephalic. Abrasion to the left forehead with ecchymosis surrounding bilateral. Conjunctiva pink. Sclera anicteric. Neck: Supple without lymphadenopathy. Trachea midline. Heart: S1 S2. Regular rate and rhythm. Lungs: Clear to auscultation. Abdomen: Soft, nontender, nondistended with bowel sounds. No guarding or rigidity. Skin: No rashes. No jaundice. Extremities: Normal skin color and turgor. No pedal edema. Neurological: No focal deficits. Alert and oriented 3. Results CBC & Chem 7: 05/01/21 07:46 05/01/21 07:46 Labs: Abnormal Lab Results - Last 24 Hours (Table) 04/30/21 04/30/21 Range/Units 08:25 08:25 RBC 3.68 L (4.30-5.90) m/uL Hgb 12.1 L (13.0-17.5) gm/dL Hct 33.2 L (39.0-53.0) % Plt Count 147 L (150-450) k/uL Lymphocytes # 0.6 L (1.0-4.8) k/uL Sodium 131 L (137-145) mmol/L BUN 6 L (9-20) mg/dL Glucose 151 H (74-99) mg/dL Calcium 8.1 L (8.4-10.2) mg/dL Lipase 473 H (23-300) U/L CT scan - abdomen: report reviewed (Findings at the head of the pancreas as described. Consider interval follow-up to assess for stability, MRI pancreas as indicated. Minimal fluid present within the pelvis.) Assessment and Plan (1) Abdominal pain Narrative/Plan: 81-year-old who presented to the emergency department with complaints of weakness and difficulty with speech. Acute infarct has been ruled out. Patient also complaining of abdominal discomfort with bloating and constipation. He he is scheduled for an outpatient colonoscopy on 05/11/[address] Mayer. His last colonoscopy was in April [address] Mclaughlin which was normal. Gastroenterology was consulted for questionable maroon colored stool. Patient's daughter thought that she saw maroon colored stool with his bowel movement yesterday which was loose. He has been having issues with constipation off and on since he had radiation for his prostate cancer. 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 He denies seeing any blood in his stool but states that it's been irregular and he has been suffering on and off with constipation which has been worse lately. He states he has been using intermittent medications at home to help with constipation including stool softeners as well as laxatives. He also underwent a CT of the abdomen and pelvis that had findings of a mildly prominent appearance of the pancreatic head, could be normal variant, there is no evident disruption of local fat plane to suggest tumor, follow-up suggested to assess for stability. Current Visit: Yes Status: Acute Code(s): R10.9 - UNSPECIFIED ABDOMINAL PAIN SNOMED Code(s): 33670479 (2) Constipation Current Visit: Yes Status: Acute Code(s): K59.00 - CONSTIPATION, UNSPECIFIED SNOMED Code(s): 37248739 Plan: 1. Continue symptomatic and supportive care 2. Administer Fleet enema 3. Agree to hold Plavix at this time until after colonoscopy 4. Continue with MiraLAX daily 5. Colocort enemas nightly 6. No plans on endoscopic evaluation at this time. Patient to keep scheduled colonoscopy 05/11/21 7. Will plan on outpatient follow-up on findings of pancreas Thank you for this consultation, we will continue to follow. Dr. Marycarmen Mayer I agree with the dictator's note, documented as a scribe by Yamilet Wild.
--- NOTE | 2021-05-01 11:50 | P.PN ---
Subjective Progress Note Date: 05/01/21 HISTORY OF PRESENT ILLNESS: This is a 81-year-old male with a past medical history significant for prostate cancer, hypertension, and hyperlipidemia. Patient does not follow with a c ardiologist. We have been asked to see the patient in consultation for bradycardia and pauses. Patient examined at the bedside. Patient is admitted to the hospital due to a possible TIA and is being followed closely by neurology. Telemetry reviewed revealing sinus bradycardia with occasional pauses up to 2 seconds. Patient was prescribed atenolol on an outpatient basis which has since been discontinued. Patient has no further significant pauses. He denies chest pain or pressure. He denies shortness of breath. He denies dizziness or lightheadedness. EKG reveals sinus bradycardia with a heart rate of 51. Chest xray expiratory rotated exam. Accentuation in the appearance of the heart may be technical. Follow-up as indicated. CT brain: Age-related changes of atrophy and probable chronic small vessel ischemia Carotid Doppler: 50-69% stenosis of the proximal left internal carotid artery Laboratory data: WBC 4.2. Hemoglobin 12.1. Platelet count 147. Sodium 131. Potassium 3.8. BUN 6. Creatinine 0.71. Current home cardiac medications include atorvastatin 20 mg daily, atenolol 12 .525 mg daily as needed 05/01/2021 Patient came in to this morning at the bedside. Patient denies chest pain or pressure. He denies shortness of breath. Denies dizziness or lightheadedness. Beta gi remains on hold. Telemetry reveals sinus mechanism with a heart rate in the 70s. Blood pressure elevated this morning with a recent reading of 179/80. Echocardiogram completed revealed ejection fraction greater than 55%, mild aortic regurgitation, mild aortic stenosis, mild mitral regurgitation, and mild tricuspid regurgitation. PHYSICAL EXAM: VITAL SIGNS: Reviewed. GENERAL: Well-developed in no acute distress. HEENT: Head is normocephalic. Bruise noted to left orbital region. Pupils are equal, round. Sclerae anicteric. Mucous membranes of the mouth are moist. Neck supple. No JVD or thyromegaly LUNGS: Respirations even and unlabored. Lungs essentially clear to auscultation bilaterally. HEART: Regular rate and rhythm. S1 and S2 heard. + Systolic murmur EXTREMITIES: Normal range of motion. No clubbing or cyanosis. Peripheral pulses intact. No lower extremity edema ASSESSMENT: TIA Bradycardia with sinus pauses, improved after DC of beta gi Left internal carotid artery stenosis Hypertension Hyperlipidemia History of prostate cancer Systolic murmur suggestive of aortic stenosis PLAN: Continue to hold beta blockers Continue telemetry monitoring Increase lisinopril to 5 mg twice a day for optimal blood pressure control. Further blood pressure management per primary care Neurology following We will sign off. Please reconsult if needed. Nurse practitioner note has been reviewed by physician. Signing provider agrees with the documented findings, assessment, and plan of care. Objective - Vital Signs Vital signs: Vital Signs Temp 98.1 F 05/01/21 08:00 Pulse 78 05/01/21 08:00 Resp 18 05/01/21 08:00 BP 179/80 05/01/21 08:00 Pulse Ox 99 05/01/21 08:00 Intake & Output 04/30/21 05/01/21 05/01/21 18:59 06:59 18:59 Intake Total 918 120 Balance 918 120 Weight 70.3 kg Intake: Intake, IV Titration 800 Amount Sodium Chloride 0.9% 1, 800 000 ml @ 100 mls/hr IV . Q10H [facility] Rx#:[id number] Oral 118 120 Other: Voiding Method Toilet Toilet Toilet # Voids 2 1 1 # Bowel Movements 1 - Labs CBC & Chem 7: 05/01/21 07:46 05/01/21 07:46 Labs: Abnormal Lab Results - Last 24 Hours (Table) 05/01/21 05/01/21 05/01/21 Range/Units 07:46 07:46 07:46 RBC 3.52 L (4.30-5.90) m/uL Hgb 11.9 L (13.0-17.5) gm/dL Hct 31.2 L (39.0-53.0) % MCHC 38.2 H (31.0-37.0) g/dL Lymphocytes # 0.6 L (1.0-4.8) k/uL Sodium 133 L (137-145) mmol/L BUN 4 L (9-20) mg/dL Glucose 139 H (74-99) mg/dL Calcium 8.1 L (8.4-10.2) mg/dL Lipase 407 H (23-300) U/L
--- NOTE | 2021-05-01 17:58 | PN ---
PROGRESS NOTE DATE OF SERVICE: 05/01/2021 He requested NO CODE. His height is 5 feet 6 inches and weight 70.3 kg, BSA 1.79 m2, BMI 25 kg/m2. ALLERGIES ARE UNKNOWN. The patient is seen and evaluated. Discussed with the patient and his son, who is also a physician, as well as his daughter. I discussed with his son and Dr. Makenna Mayer, Gastroenterology, who did see him and evaluated him. At this time she is going to continue the current therapy. I started him on colocort, cortisone enema which is 100 mg. He had one dose at lunchtime and he will get the second dose at bedtime and subsequently daily at night. He can have it subsequently when he is discharged home. Dr. Mayer will see him on May 11 for his colonoscopy and she explained to him that the feeling of wanting to have a bowel movement could be associated with irritation of the sigmoid rectal area. We agreed on the cortisone enema, which he has started already. The PA for Cardiology did see him today as well. With his blood pressure elevation, they started him on DELL inhibitor. He denied any symptoms of dizziness or blurred vision. We did hold the beta gi because of his bradycardia and pauses that he had. We discontinued the metoprolol as well as the atenolol. On the current exam, his vital signs show a temperature of 98.2 F oral, pulse was 64, and between 70 and the 60 and the correction of his heart rate. No further bradycardia. His respiratory rate 16 per minute. Normal, non-labored. His blood pressure 180/72, and they started him on the DELL inhibitor. He is on room air 100%. LABORATORY: Hemoglobin is 11.9 with hydration and his IV fluids stopped last night. His hyponatremia has been corrected, with sodium 133. It started at 123. His potassium is 4 and chloride 102, carbon dioxide 26, and his anion gap is 5. His BUN is 4, creatinine 0.69 with GFR 89. His blood sugar was 139; he already ate breakfast; and he is on insulin to scale. His calcium 8.1 and his LDL 59. Lipase was initially 379 and subsequently increased to 473; now it is 407. 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 His cortisol level was 22, which is in normal range. No evidence of increase. Stool for Hemoccult done last night when the patient stated that he had some blood in the stools subsequently found the stool was negative. Also Dr. Mayer's team discussed with Dr. Valiente regarding the the use of Plavix and aspirin, and they decided that they can hold the Plavix for the colonoscopy and continue with the aspirin alone. Dr. Mayer has no problem with that for the colonoscopy for evaluation of possible proctitis and the feeling of wanting to go to the bathroom. The MRI was negative and he is cleared from the neurology point of view at this time. We started him on the cortisone enema as well as monitoring his blood pressure. We will be seeing him tomorrow and we will be planning for discharge home tomorrow with the adjustment of the blood pressure per Cardiology as outpatient. On the exam, he is conscious, alert, oriented, and he is able to communicate. He had still some slurred speech and still he had shuffling of his gait, but able to ambulate. The neck was supple. No JVD. No thyromegaly. No lymphadenopathy. Chest was clear to auscultation and percussion. The heart was regular sinus rhythm. The abdomen was soft, positive bowel sounds, with mild distention. We discussed that with Dr. Mayer with the head of the pancreas and she will be following that and maybe she will try to do MRCP or ERCP or MRI to clarify the issue of the pancreas with elevated lipase. EXTREMITIES: No edema and positive pulses. No abdominal pain. ASSESSMENT: 1. Patient is in stable general condition with normal vitamin B6 and only borderline to low vitamin B12. Serum cortisol was normal and the PSA was less than 0.1 with no recurrence. 2. He has a transient ischemic attack and the possibility of the internal capsule is considered. However, it was cleared as non-diagnostic. 3. History of abdominal distention and a feeling of wanting to have a bowel movement, with a question of possible radiation proctitis. We will be continuing with the cortisone enema. 4. Vitamin B12 deficiency. Otherwise, patient will be followed tomorrow and hopefully no new findings with underlying hypertension and hypertensive heart disease very sensitive to the beta gi, which was completely discontinued by Cardiology. MMODL / IJN: [id number] / CHARLI
[2021-05-01] MEDS: lisinopriL 5 MG TAB PO SCH (20:47)
[2021-05-01] MEDS: ATORVASTATIN 80 MG TAB PO SCH (20:47)
[2021-05-01] MEDS: polyethylene glycoL 3350 17 GM POWD.PACK PO SCH (20:47)
[2021-05-01] MEDS ORDERED: HYDROCORTISONE ENEMA 100 MG/60 ML RECTAL SCH (21:00)
[2021-05-02] MEDS: ASPIRIN 325 MG TAB PO SCH (09:31)
[2021-05-02] MEDS: CITALOPRAM HYDROBROMIDE 10 MG TAB PO SCH (09:31)
[2021-05-02] MEDS: lisinopriL 5 MG TAB PO SCH (09:31)
[2021-05-02] MEDS: polyethylene glycoL 3350 17 GM POWD.PACK PO SCH (09:32)
[2021-05-02] MEDS: DOCUSATE 100 MG CAP PO SCH (09:34)
[2021-05-02] MEDS: TIMOLOL 0.5% OPHTH DROPS 5 ML BTL BOTH EYES SCH (09:35)
[2021-05-02] MEDS: LATANOPROST 0.005% OPHTH DROPS 2.5 ML BTL BOTH EYES SCH (09:36)
[2021-05-02] MEDS: SODIUM CHLORIDE 0.9% 1,000 ML IV SCH (09:42)
[2021-05-02 09:48] VITALS: RESP 18
[2021-05-02] MEDS ORDERED: HYDROCORTISONE ENEMA 100 MG/60 ML RECTAL STA (10:00)
[2021-05-02] MEDS ORDERED: lisinopriL 5 MG TAB PO STA (10:04)
--- NOTE | 2021-05-02 12:20 | P.PN ---
Subjective Progress Note Date: 05/02/21 The patient is at bedside and he is accompanied with his son. The patient states that that she's doing well and denies any further episodes of the difficulty getting his words out or slurring the speech. Denies any neurological deficit there. He has abdominal distention but denies any nausea any vomiting. Objective - Vital Signs Vital signs: Vital Signs Temp 98.5 F 05/02/21 08:00 Pulse 63 05/02/21 08:00 Resp 18 05/02/21 08:00 BP 168/60 05/02/21 08:00 Pulse Ox 100 05/02/21 08:00 Intake & Output 05/01/21 05/02/21 05/02/21 18:59 06:59 18:59 Intake Total 360 Balance 360 Weight 70.3 kg 79 kg Intake: Oral 360 Other: Voiding Method Toilet Toilet Toilet # Voids 2 1 - Exam GENERAL: The patient is lying in bed and is not in acute distress. HENT: Echymoses periorbital bilaterally and edema over the left frontal from recent fall.--resolving. NEUROLOGICAL: Higher mental function: The patient is awake, alert, oriented to self, place and time. Patient is following commands. No aphasia and intact repetition (per da garyer his language is at baseline). No neglect. Cranial nerves: The pupils are round, equal and reactive to light and accommodation. Visual whitaker are full to confrontation throughout. Extraocular movement is intact no nystagmus is noted. Facial sensation is normal to touch throughout. The facial strength is normal throughout. Hearing is normal bilaterally to hand rub. Tongue is midline and moved [id number] without any difficulty. No dysarthria is noted. Shoulder shrug is normal bilaterally. Motor: Gait is deferred. The strength is 5 over 5 throughout. Normal tone and bulk. Cerebellum: Normal finger to nose bilaterally. Sensation: Sensation is normal to touch throughout. Reflexes (right/left): 2+ throughout. Plantars are downgoing bilaterally. WORK-UP: CT of the head is reported as age-related change of atrophy and probable chronic small vessel ischemia. CT angiography of the head and neck was reported as proximal right subclavian artery shows a stenosis. Correlate for at this crepitance upper extremity blood pressures. There is a carotid stenosis on the left which is hemodynamically significant. In the body of the report it is reported as at least 60-70% diameter reduction. It's reported in the proximal internal carotid artery stenosis Stroke code was activated and the ED team spoke with stroke attending (Dr. Riddle) and it was notified that patient is not tpa candidate a this time since his symptoms is more than 4-1/2 hours and the symptoms are improving as well as and recent head injury. MR the brain is reported as age-related atrophy and chronic small vessel ischemic change. No evidence of recent infarct or other diffusion abnormality in the body they reported. 2-D echo was reported as left ventricle size is normal. Normal left atrial size by volume. Ejection fraction greater than 55%. Carotid duplex was reported as atherosclerotic change with findings suggestive of 50-69% stenosis of the proximal left ICA. Lipid panel is triglycerides 153, cholesterol is 134, LDLs 59 and HDL 44. Vitamin B12 is 340 which is low normal and serum folate is more than 20 which is considered within normal limits. TSH is 3.660. - Labs CBC & Chem 7: 05/01/21 07:46 05/01/21 07:46 Assessment and Plan Assessment: Transient Aphasia and mild dysarthria: Likely due to transient ischemic attack Left ICA stenosis of at least 60-70% per CTA but is 50-69% stenosis on carotid duplex Proximal right subclavian artery stenosis or CTA Abdominal pain Mild to moderate hyponatremia (on presentation was 123 and most recent is 130) due to medication use (on Miralax etc) Constipation Bradycardia (40's) Hyperlipidemia History of prostate cancer status post radiation Plan: * Because of abdominal issues and that questionable blood in the stool. Therefore, stopped dual antiplatelets and we'll place the patient on aspirin 325mg daily for now. Once cleared by GI team then the recommend starting the patient on aspirin 81 mg and Plavix 75 mg daily. Once the patient is on dual antiplatelet recommended for the patient to be on dual antiplatelets for 21 days and after that to discontinue aspirin(since failed medication) and continue Plavix 75 mg daily. If the patient has an any falls down the line recommend for the patient to be on Plavix rather than dual antiplatelets. * Continue Lipitor 80 mg daily at bedtime for secondary stroke prophylaxis. * Continue neuro checks * Continue cardiac monitoring. * Patient be discharged with event monitor for 30 days and to follow up with cardiology. * Cardiology team is on board * Regarding the left ICA stenosis and a right subclavian stenosis, vascular surgery team is on board. For now no intervention and will follow-up with vascular as outpatient. * Because of low vitamin B12 patient continue vitamin B12 1000 g daily. * Gastroenterology team in on board. * We'll defer the rest of the medical management to the primary team * Upon discharge the patient needs to follow-up with a neurologist as outpatient within 1-2 weeks. The plan is discussed with the patient and his son who is at bedside. There is no further neurological workup. Patient is clear for discharge from a neurological standpoint. Johnathan Valiente M.D. Neuro-hospitalist Time with Patient: Less than 30
[2021-05-02 12:59] VITALS: BP 160/72; PULSE 46; TEMP 98.1
[2021-05-02 14:16] VITALS: BMI 28.0
--- NOTE | 2021-05-02 15:45 | P.PN ---
Subjective Progress Note Date: 05/02/21 Principal diagnosis: ICA stenosis 81-year-old male who presented to the emergency department with some speech difficulty as well as some generalized weakness who was seen by neurology and CVA/TIA has been ruled out. Patient was also with complaints of abdominal pain and distention with constipation over the last several weeks. He has been using multiple laxatives at home with no good success. He has a history of prostate cancer status post radiation with history of proctitis. He denies any rectal bleeding or blood in his stool. Occult stool was negative. He was given fleets enema as well as a steroid enema yesterday. He had a bowel movement yesterday evening. He is been in the bathroom this morning trying to have a bowel movement. He will be scheduled for outpatient colonoscopy on 05/11/[address] Mayer. Objective - Vital Signs Vital signs: Vital Signs Temp 98.5 F 05/02/21 08:00 Pulse 63 05/02/21 08:00 Resp 18 05/02/21 08:00 BP 168/60 05/02/21 08:00 Pulse Ox 100 05/02/21 08:00 Intake & Output 05/01/21 05/02/21 05/02/21 18:59 06:59 18:59 Intake Total 360 Balance 360 Weight 70.3 kg 79 kg Intake: Oral 360 Other: Voiding Method Toilet Toilet Toilet # Voids 2 1 - Exam General appearance: The patient is alert, oriented, in no acute distress. HET: Head is normocephalic, abrasion to left side of forehead, under bilateral eyes with ecchymosis. Pupils are equal and reactive. Neck: Supple without lymphadenopathy. Trachea midline. Heart: S1 S2. Regular rate and rhythm. Lungs: Clear to auscultation. Abdomen: Soft, nontender, nondistended. Extremities: Normal skin color and turgor. No cyanosis, rash, ulceration, clubbing, or edema. Neurological: No focal deficits. Strength and sensation are grossly intact. - Labs CBC & Chem 7: 05/01/21 07:46 05/01/21 07:46 Labs: Abnormal Lab Results - Last 24 Hours (Table) 05/01/21 Range/Units 07:46 Lymphocytes # 0.6 L (1.0-4.8) k/uL Assessment and Plan (1) Abdominal pain Narrative/Plan: 81-year-old who presented to the emergency department with complaints of weakness and difficulty with speech. Acute infarct has been ruled out. Patient also complaining of abdominal discomfort with bloating and constipation. He he is scheduled for an outpatient colonoscopy on 05/11/[address] Mayer. His last colonoscopy was in April [address] Mclaughlin which was normal. Gastroenterology was consulted for questionable maroon colored stool. Patient's daughter thought that she saw maroon colored stool with his bowel movement yesterday which was loose. He has been having issues with constipation off and on since he had radiation for his prostate cancer. 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 He denies seeing any blood in his stool but states that it's been irregular and he has been suffering on and off with constipation which has been worse lately. He states he has been using intermittent medications at home to help with constipation including stool softeners as well as laxatives. He also underwent a CT of the abdomen and pelvis that had findings of a mildly prominent appearance of the pancreatic head, could be normal variant, there is no evident disruption of local fat plane to suggest tumor, follow-up suggested to assess for stability. Status: Acute Code(s): R10.9 - UNSPECIFIED ABDOMINAL PAIN SNOMED Code(s): 69541257 (2) Constipation Status: Acute Code(s): K59.00 - CONSTIPATION, UNSPECIFIED SNOMED Code(s): 40621102 Plan: 1. Continue symptomatic and supportive care 2. Agree to hold Plavix at this time until after colonoscopy 3. Continue with MiraLAX daily 5. Colocort enemas nightly 6. Patient will also be sent home with hydrocortisone suppositories if unable to administer enemas 7. No plans on endoscopic evaluation at this time. Patient to keep scheduled colonoscopy 05/11/21 8. Will plan on outpatient follow-up on findings of pancreas Thank you for this consultation, patient is stable for discharge. Dr. Marycarmen Mayer I agree with the dictator's note, documented as a scribe by Yamilet Wild.
[2021-05-02] MEDS ORDERED: lisinopriL 10 MG TAB PO SCH (21:00)
[2021-05-02] MEDS ORDERED: amLODIPine 2.5 MG TAB PO SCH (21:00)
--- NOTE | 2021-05-02 21:03 | DS ---
DISCHARGE SUMMARY DATE OF SERVICE: 05/02/2021. DISPOSITION: Discharged home with [place] visiting nurse. FINAL DIAGNOSES: 1. Transient ischemic attack, resolved and status post CT scan and CTA angiogram and MRI of the brain. With the neurological evaluation by Dr. Johnathan Valiente with the pending cerebrovascular accident results. 2. Advanced severe hyponatremia with sodium 123. 3. Chronic constipation with failure of treatment as an outpatient. 4. Abdominal pain with abdominal distention. 5. Subtle abnormalities of the head of the pancreas and further evaluation by the gastroenterology, Dr. Mayer, after patient going to have his colonoscopy on May 11, as outpatient. 6. Underlying anxiety and depression. 7. 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 8. Hypertension with hypertensive heart disease is highly considered. Cardiology has been adjusting medication. 9. History of glaucoma. 10.Generalized weakness. 11.Cardiac rhythm pauses more than 2 seconds with the sensitivity to beta gi, Atenolol and metoprolol associated with bradycardia. 12.Vitamin B12 deficiency and he received 1000 mcg IM vitamin B12, cyanocobalamin. 13.Rule out vascular disease with the presence of right subclavian stenosis and left internal carotid artery stenosis. CONSULTATIONS: 1. Dr. Makenna Mayer. 2. Dr. Nahomi Mancia, content analyst. With the placement of event monitor to be monitored and back with Dr. Nahomi Mancia for further evaluation. 3. Dr. Johnathan Valiente, neurologist. 4. Vascular surgeon, Dr. Parish/Dr. Jackson which consulted by Dr. Valiente, the neurologist to rule out vascular disease with the presence of right subclavian stenosis and left internal carotid artery stenosis. HOSPITAL COURSE: Presentation to the emergency room with the slurred speech as well as facial abnormality and paresthesia and generalized weakness and shuffling gait. As patient in the hospital, with consultation with Cardiology as well as gastroenterology and further result and for further investigation was done and on this investigation, the patient had because of the TIA and impending CVA and progression, carotid duplex study and carotid duplex study was essentially result atherosclerotic changes. Findings suggestive of 50-60 percent stenosis in the left proximal ICA, internal carotid artery. During the hospital course, he had also EKG and the EKG indicating that he had sinus bradycardia with heart rate 51 with the sinus arrhythmia, left ventricle hypertrophy with the underlying history of hypertension with hypertensive heart disease. He was on beta blockers which found to have pauses and at that time, the patient stopped the beta blockers with the consultation of the Cardiology. The patient also during his hospital stay he had a MRI of the brain and the conclusion was age related atrophy and chronic small vessel ischemic disease. However, stated in between the line there is blooming artifact is noted along the basal ganglia on the left, likely related to calcification seen on the CT scan and there is corresponding low signal on T1 weighted images and also confluent and scattered hyperintensity present in the pericallosal and periventricular and subcortical white matter on the inversion recovery and T2 weighted sequences. The ventricular system was normal in size and appearance and volume is age appropriate. Also, the patient underwent echocardiogram and the echocardiogram was with the presence of sinus rhythm and the patient found his ejection fraction 55 and mild aortic regurg, mild aortic stenosis and the gradient across the aortic valve 20.77 mmHg as a peak and the gradient is 9.42, mild mitral annular calcification coming, and mild mitral regurgitation, and tricuspid regurgitation. The patient with the abnormally distended abdomen with chronic constipation, symptomatic, underwent a CT scan of the abdomen and pelvis with contrast and the result was indicating that lung base is normal. Aorta is normal. Liver shows some hypodensity within the gallbladder due to vicarious excretion of the contrast. The pancreas with mild prominent appearance of the pancreatic head in axial image #34 and coronal image #47, could be a variant. Stated no evidence disruption of local fat plan to suggest tumor. Followup is suggested for stability. Spleen was normal and the kidney indicating that the left kidney shows cortical cyst and cyst in the posterior aspect of the upper wall measuring 2 cm. His bowel scattered diverticular disease. No inflammatory changes and no bowel obstruction. Appendix normal in appearance. No free air. Minimal free fluid present in the pelvis with looking for ascites which he was not conclusive. Pelvic adenopathy was negative. Retroperitoneal adenopathy was negative. Urinary bladder hyperdensity within the bladder due to the prior contrast administration. On the osseous structure, he had facet arthropathy, minimal anterolisthesis grade 1 of L5 and S1. He had a spine curvature and also, superior endplate of L4 on the right and lucent area present, inferior endplate of L2, 3, with the possibility of Schmorl's formation. There is also anterior flowing osteophytes in the thoracic spine with the underlying probability of diffuse idiopathic skeletal hyperostosis. They recommended for the impression pancreatic evaluation with the MRI of the pancreas with the secondary minimal fluid present in the pelvis. Which will be checked later on after he has his colonoscopy after seen by Dr. Maeyr. CT angiogram which was done on 04/28/2021 indicating right subclavian stenosis. However he had equal blood pressure in both arms and no muscle atrophy and the pulses in the radial was normal. He has also CTA, carotid stenosis on the left, which indicated by hemo significant stenosis. However, the ultrasound done after that which was negative and consultation with the vascular surgeon was obtained. This surgical consultation seen by the nurse practitioner of Dr. Lico Durand D.O. and his nurse practitioner who did see the patient, Yamilet Santana with the conclusion that the patient had left internal carotid stenosis 60-70 percent with the CTA at 50-69 percent. He has transient aphasia and generalized weakness and proximal right subclavian stenosis and they will review with a planned CT angiogram head and neck and carotid ultrasound with Dr. Durand and no further recommendation. At initial admission through the emergency room, the patient [id number], presented with emergency department with the potential stroke and symptoms appear around 3:30 am when he woke up to use the bathroom. He did problem finding words and slurred speech and difficulty using the right arm and staggered gait. He was brought to the emergency room subsequently. On the continuing care, patient first because of the hyponatremia and with dehydration, improved with normal saline and as the patient gradually improved the sodium and the urine sodium was 60 and he had serum cortisol level was 22, which was normal and found that he has vitamin B12 deficiency and he had an injection of vitamin B12 injection with 1000 mcg IM, 1 type and then in the future will be having more supplements through sublingual or nasal as outpatient when he is seen in the office. As the patient progressively improved and seen by Dr. Mayer and arranged for him, the colonoscopy with his feeling of chronic constipation and urgency to have a bowel movement, but he could not, we started his Colocort enema 100 mg and to be done once at bedtime and we gave him doses yesterday during the day and a second dose today in the morning, which did have much improvement. As he has in the hospital, his blood pressure was still uncontrolled and with attempt of that, the Cardiology increased his lisinopril to 10 mg twice a day and he still was elevated to 160 and we started him on amlodipine 2.5 mg twice a day subsequently for attempt to control the blood pressure. FACE TO FACE EXAMINATION: Patient is conscious, alert, oriented x3 at this time and he had no specific complaints. He appeared to be returned to himself and his blood pressure 160/72, and oxygen saturation on room air 100%. His temperature 98.1 axillary and his heart rate was ranging between 63 and 46. However, he had the event monitor on and cleared for discharge by Cardiology. His respiratory rate is 18. HEAD: Normocephalic, atraumatic. Pupils equal, reactive. Oropharynx normal with natural teeth. He had no facial abnormality which returned to the normal and no paresthesia. Neck was supple. No JVD. No thyromegaly. No lymphadenopathy. He had mild carotid artery disease as mentioned above in the left internal carotid and he had a right subclavian stenosis by the CTA and the trachea midline. The chest was clear to auscultation and percussion. The heart was regular sinus rhythm. Receiving the 30 days event monitor by Dr. Nahomi Mancia and he will be following with Dr. Nahomi Mancia. The abdomen is soft, positive bowel sounds. Mildly distended and he had much improvement clinically from the Colocort which is cortisone enema and we will be continuing that as well as Dr. 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 EXTREMITIES: No edema. No weakness. He is able to ambulate to the bathroom and he has pulses intact bilateral and symmetrical and the neurological examination was grossly intact and also seen by Dr. Johnathan Valiente of the Neurology and cleared for discharge. PLAN: We will discharge patient today. Follow up next week in the office and continue current medication as mentioned above and discuss that with Dr. Esdras Prakash and Dr. Rich Lanza who is the son as well he is a physician as well. Continuation of current medication as mentioned with the followup with the above physician, Dr. Mancia, Dr. Makenna Mayer, as well as myself next week. MMODL / IJN: [id number] /
== END 2021-05-02 15:05 | disposition home health service (06) | DRG 69 ==
LOC: EC 11:47 → 3SCARD 13:40
PROVIDERS: ADMIT Internal Medicine; ATTEND Internal Medicine
DX: G45.9 Transient cerebral ischemic attack, unspecified (principal); E87.1 Hypo-osmolality and hyponatremia; K52.0 Gastroenteritis and colitis due to radiation; I11.9 Hypertensive heart disease without heart failure; E86.0 Dehydration; I77.1 Stricture of artery; Z23 Encounter for immunization; Z20.822 Contact with and (suspected) exposure to COVID-19; I70.8 Atherosclerosis of other arteries; I65.22 Occlusion and stenosis of left carotid artery; R73.9 Hyperglycemia, unspecified; I08.3 Combined rheumatic disorders of mitral, aortic and tricuspid valves; E78.5 Hyperlipidemia, unspecified; R00.1 Bradycardia, unspecified; S00.81XA Abrasion of other part of head, initial encounter; S00.12XA Contusion of left eyelid and periocular area, initial encounter; E53.8 Deficiency of other specified B group vitamins; K59.09 Other constipation; K62.7 Radiation proctitis; K57.90 Diverticulosis of intestine, part unspecified, without perforation or abscess without bleeding; M25.78 Osteophyte, vertebrae; M48.14 Ankylosing hyperostosis [Forestier], thoracic region; M47.817 Spondylosis without myelopathy or radiculopathy, lumbosacral region; F32.9 Major depressive disorder, single episode, unspecified; F41.9 Anxiety disorder, unspecified; H40.9 Unspecified glaucoma; R26.89 Other abnormalities of gait and mobility; Z79.82 Long term (current) use of aspirin; Z79.899 Other long term (current) drug therapy; Z92.3 Personal history of irradiation; Z85.46 Personal history of malignant neoplasm of prostate; Y84.2 Radiological procedure and radiotherapy as the cause of abnormal reaction of the patient, or of later complication, without mention of misadventure at the time of the procedure; W19.XXXA Unspecified fall, initial encounter; Z82.49 Family history of ischemic heart disease and other diseases of the circulatory system
CPT/HCPCS: 36415; 70450; 70496; 70498; 70553; 71046; 74018; 74177; 80048; 80053; 80061; 81003; 82150; 82272; 82533; 82607; 82728; 82746; 83036; 83540; 83550; 83690; 83930; 83935; 84153; 84207; 84300; 84443; 84484; 85025; 85610; 85730; 86301; 87635; 93005; 93270; 93306; 93880; 99285

== ENCOUNTER 2021-05-06 17:53 | Inpatient (IN) | payer MEDICARE ==
[2021-05-06] MEDS ORDERED: ATORVASTATIN 80 MG TAB PO SCH ×2 (19:30→21:00)
--- NOTE | 2021-05-06 19:54 | P.HPIM ---
History of Present Illness H&P Date: 05/06/21 (Dehydration, acute abdomen with pain, generalized weakness) Chief Complaint: Continue to be dehydrated with low intake, abdominal pain History and physical dictation by Dr. Valentin, Date of service 05/06/2021. Chief complaint: Dr. Lanza David recently discharged from the hospital with the possibility of colonoscopy on 05/11 her Makenna Torre foundry operator Patient has loss of appetite not eating, dehydrating, with history of hypo- natremia and lost admission. Associated with abdominal pain and distention and generalized weakness which progressive. Patient son Dr. Teofilo Lanza talk to me with a concern, as well as his friend Dr. Hughes, sergey. With the request of hydration on observation status until he get at least his colonoscopy sooner and we able to make his colonoscopy sooner on May 10, at [facility] but he need for further hydration prior to the colonoscopy for that reason patient admitted on observation. 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 ISABEL Mancia as well as seen by the foundry operator Dr. Makenna Mayer and they planned that for the colonoscopy on the May 11. At home patient deteriorate significantly and after even adjustment of his medication, on his last admission he had sodium 123 with hypo-natremia and also electrolyte imbalance with hypokalemia. His renal function was stable and he had underlying right facial (0 and drooping, patient underwent computed tomography scan MRI of the brain and also seen by the neurologist freya Kat who suggested that patient should be on Plavix and baby aspirin however he agreed to be on only one aspirin a day if patient going for colonoscopy to avoid bleeding Patient also had a problem with bradycardia and found to be due to beta blockers atenolol as well as metoprolol. Currently his heart rate is stable 62 bpm normal sinus rhythm. Patient also had carotid Doppler study found to be 50-69% stenosis of proximal left internal carotid artery and he was seen by vascular surgeon of [facility] as well as he had also stenosis of the subclavian artery on the right side by the CT angiogram that done on admission. Patient had echocardiogram as well with the ejection fraction 55% and he had mild aortic stenosis and mild aortic regurgitation, and he had a peak gradient on the aortic valve is 20.77 mmHg and the mean 9.42 mmHg he had a mitral regurgitation and tricuspid regurg as well and normal left atrial size. And the systolic function was normal at that time as well and he had event monitor was placed by Dr. ISABEL Mancia and was functioning and he checked it out as outpatient. On this admission patient at home become more dehydrated not able to eat or due to loss of appetite. And he had abdominal discomfort with the difficulties of having a bowel movement and the trying several medication deluding the and edema and the cortices ON and edema and is not helping. Dr. Duron understand that already as he describes that to her and that's why also she will axillary the colonoscopy to be the next Friday's. New Patient has history of prostatic cancer treated only with radiation on 2005 and the hour feeling that could be at bedtime some radiation colitis or proctitis but he did not feel that cortisone enema didn't help. He has history of hypertension and current blood pressure 165/74 which is still hypertensive. He had hyperlipidemia with the recommendation of the neurology to keep at 80 Lipitor at bedtime because of the results of the CT angiogram as well as ultrasound. Review of system #1 neuro psychiatry negative #2 patient conscious alert oriented and able to state his problem #3 decrease intake and abdominal pain and difficulty of having bowel movements with hesitancy and he able to control the BM and urination. #3 no recurrence of the TIA so far #4 cardiovascular hypertension but no palpitation or chest pain. #5 genitourinary negative. #6 endocrine he had hyperlipidemia. #7 history of carotid artery disease and subclavian artery stenosis. #8 chronic constipation. #9 history of vitamin B12 deficiency and he received on his admission 1000 g of vitamin B12 IM. #10 general weakness affected his lower extremities and upper extremities. #11 on the lost admission his sodium 123 on the discharge was 131. No added information for reviewing the risks of the bullets 14. ALLERGY none Family history he has son is Dr. castillo and the daughter Dr. castillo as well. He is nonsmoker and nondrinker. On the physical exam: His height is 5 foot 6 inches and weight kilogram 69.4 no ALLERGIES his temperature 98.3 pulse 62 regular sinus and pulse ox 98% and the blood pressure 162/74. HEENT: Head was normocephalic and atraumatic pupil is equal reactive and he had early cataracts, hearing is normal, oropharynx natural teeth Midline symmetrical, nose was negative no rhinitis. Neck: Supple no JVD no thyromegaly or lymph adenopathy trachea midline. Chest: Clear to auscultation percussion no wheezes or rhonchi's and no dullness on percussion Heart: Regular sinus rhythm normal rate he had a murmur on the apex radiated to the base with the underlying valvular heart disease and aortic stenosis which appear in his lost echo which was considered as my. Abdomen: Protuberant, distended, with the light palpation vague discomfort, high-pitched sound of the bowel sounds could not palpate liver or spleen. Patient had previously computed tomography scan of the abdomen and lost admission and was questionable the head of the pancreas and Dr. Duron aware of that and will be further investigation after she to her colonoscopy. The extremities: No edema and 2+ pulses bilateral and no evidence of onychomycosis or tinea pedis. Neurologically: Stable with no evidence of staggering, tremors, no lateralizing sign with the generalized weakness. Assessment and plan: #1 obtain complete abdominal x-ray with decubitus and the rule out obstruction or air under the diaphragm with the discomfort of the abdomen and distention. #2 serum home days and lipase. #3 hydration. #4 obtaining laboratories which is ordered, control the blood pressure, controlled the pain, #[address] Domi Mensah tomorrow for arrangement for the colonoscopy as well #6 resuming his medication for the blood pressure. . Past Medical History Past Medical History: Cancer, Hyperlipidemia Additional Past Medical History / Comment(s): CA: prostate & radiation, History of Any Multi-Drug Resistant Organisms: None Reported Additional Past Surgical History / Comment(s): colonoscopy Past Anesthesia/Blood Transfusion Reactions: No Reported Reaction Past Psychological History: No Psychological Hx Reported Smoking Status: Never smoker Past Alcohol Use History: Rare Past Drug Use History: None Reported - Past Family History Mother Family Medical History: Coronary Artery Disease (CAD) Father Family Medical History: Coronary Artery Disease (CAD) Medications and Allergies Home Medications Medication Instructions Recorded Confirmed Type Ibuprofen [Motrin Ib] 400 mg PO Q8H PRN 04/28/21 04/28/21 History Latanoprost/Pf [Latanoprost 0.005% 1 drop BOTH EYES DAILY 04/28/21 04/28/21 History Eye Drop] Timolol 0.5% Ophth Soln [Timoptic 1 drop BOTH EYES DAILY 04/28/21 04/28/21 History 0.5% Ophth Soln] Aspirin 325 mg PO DAILY tab 05/02/21 Rx Atorvastatin [Lipitor] 80 mg PO HS #30 tab 05/02/21 Rx Docusate [Colace] 100 mg PO BID cap 05/02/21 Rx Hydrocortisone Enema [Colocort] 100 mg RECTAL HS #14 ml 05/02/21 Rx Hydrocortisone Suppository 25 mg RECTAL DAILY #14 suppositor 05/02/21 Rx [Anusol-Hc] Ibuprofen [Motrin] 600 mg PO QID PRN tab 05/02/21 Rx amLODIPine [Norvasc] 2.5 mg PO BID #60 tab 05/02/21 Rx lisinopriL [Zestril] 10 mg PO BID #60 tab 05/02/21 Rx polyethylene glycoL 3350 [Miralax] 17 gm PO DAILY #30 packet 05/02/21 Rx Allergies Allergy/AdvReac Type Severity Reaction Status Date / Time No Known Allergies Allergy Verified 04/28/21 13:19 Physical Exam Vitals: Vital Signs Temp Pulse Resp BP Pulse Ox 05/06/21 19:01 98.3 F 62 18 165/74 98 Intake and Output 05/06/21 05/06/21 05/06/21 06:59 14:59 22:59 Other: Weight 69.4 kg
--- NOTE | 2021-05-06 20:01 | XR ---
EXAMINATION TYPE: XR abdomen complete w decub DATE OF EXAM: 05/06/2021 COMPARISON: 04/28/2021 HISTORY: Bowel obstruction. Pain. TECHNIQUE: 4 views FINDINGS: There is no sign of intestinal obstruction or pneumoperitoneum. Fecal pattern is normal. Carmela ng bases are clear. There is no evidence of abdominal mass. There are no pathologic calcifications ov er the kidneys. IMPRESSION: Nonacute abdomen. No evidence of constipation. No bowel obstruction. No adverse change.
[2021-05-06] MEDS: HYDROCORTISONE ENEMA 100 MG/60 ML RECTAL SCH (20:31)
[2021-05-06] MEDS: HEPARIN SODIUM,PORCINE/PF 5,000 UNIT/0.5 ML SYRINGE SQ SCH (20:31)
[2021-05-06] MEDS: SODIUM CHLORIDE 0.9% 1,000 ML IV SCH (21:00)
[2021-05-06] MEDS: amLODIPine 2.5 MG TAB PO SCH ×2 (21:06→21:15)
[2021-05-06] MEDS: CITALOPRAM HYDROBROMIDE 10 MG TAB PO SCH ×2 (21:06→21:13)
[2021-05-06] MEDS: lisinopriL 10 MG TAB PO SCH (21:06)
[2021-05-06] MEDS: ASPIRIN 325 MG TAB PO SCH ×2 (21:06→21:13)
[2021-05-06] MEDS: DOCUSATE 100 MG CAP PO SCH (21:06)
[2021-05-06 21:30] LABS: Prothrombin Time 10.6 sec (9.0-12.0)
[2021-05-06 21:31] LABS: Basophils % (A) 0 %; Eosinophils % (A) 0 %; HCT 35.7 % (39.0-53.0); HGB 13.1 gm/dL (13.0-17.5); Hyperchromasia Marked; Lymphocytes # (A) 0.6 k/uL (1.0-4.8); Lymphocytes % (A) 9 %; MCH 33.1 pg (25.0-35.0); MCHC 36.7 g/dL (31.0-37.0); MCV 90.2 fL (80.0-100.0); Mean Platelet Volume 7.5; Monocytes # (A) 0.4 k/uL (0-1.0); Monocytes % (A) 6 %; Neutrophils # (A) 5.6 k/uL (1.3-7.7); Neutrophils % (A) 84 %; Platelet Count 253 k/uL (150-450); Poikilocytosis Slight; RBC 3.96 m/uL (4.30-5.90); RDW 14.3 % (11.5-15.5); WBC 6.7 k/uL (3.8-10.6)
[2021-05-06 21:38] LABS: AST 32 U/L (17-59); African American GFR (CKD) >90 (>60 ml/min/1.73 sqM); Albumin 4.4 g/dL (3.5-5.0); Albumin/Globulin Ratio 1.8; Alkaline Phosphatase 70 U/L (38-126); Amylase 79 U/L (30-110); Blood Urea Nitrogen 8 mg/dL (9-20); Calcium 9.6 mg/dL (8.4-10.2); Carbon Dioxide 26 mmol/L (22-30); Chloride 93 mmol/L (98-107); Globulin 2.4 g/dL; Glucose 151 mg/dL (74-99); Non-African American GFR(CKD) 88 (>60 ml/min/1.73 sqM); Phosphorus 3.7 mg/dL (2.5-4.5); Total Bilirubin 0.7 mg/dL (0.2-1.3); Total Protein 6.8 g/dL (6.3-8.2)
[2021-05-06 21:48] LABS: ALT 38 U/L (4-49); Anion Gap 9 mmol/L; Lipase 504 U/L (23-300); Magnesium 1.8 mg/dL (1.6-2.3); Potassium 3.7 mmol/L (3.5-5.1); Sodium 128 mmol/L (137-145)
[2021-05-06 22:01] VITALS: RESP 16
[2021-05-06 23:00] LABS: Appearance,Urine Clear (Clear); Bilirubin,Urine Negative (Negative); Blood,Urine Negative (Negative); Color,Urine Light Yellow; Glucose,Urine (UA) Negative (Negative); Ketones,Urine Negative (Negative); Leukocyte Esterase,Urine Negative (Negative); Nitrite,Urine Negative (Negative); Protein,Urine Negative (Negative); Specific Gravity,Urine 1.005 (1.001-1.035); Urobilinogen,Urine <2.0 mg/dL (<2.0)
[2021-05-07] MEDS: SODIUM CHLORIDE 0.9% 1,000 ML IV SCH ×2 (04:36→14:46)
[2021-05-07] MEDS ORDERED: traMADol 50 MG TAB PO PRN (09:20)
[2021-05-07] MEDS: amLODIPine 2.5 MG TAB PO SCH ×3 (09:41→20:16)
[2021-05-07] MEDS: CITALOPRAM HYDROBROMIDE 10 MG TAB PO SCH (09:41)
[2021-05-07] MEDS: DOCUSATE 100 MG CAP PO SCH ×3 (09:42→21:09)
[2021-05-07] MEDS: lisinopriL 10 MG TAB PO SCH ×2 (09:42→21:02)
[2021-05-07 09:43] LABS: African American GFR (CKD) >90 (>60 ml/min/1.73 sqM); Anion Gap 6 mmol/L; Blood Urea Nitrogen 7 mg/dL (9-20); Calcium 9.2 mg/dL (8.4-10.2); Carbon Dioxide 29 mmol/L (22-30); Chloride 95 mmol/L (98-107); Glucose 138 mg/dL (74-99); Non-African American GFR(CKD) 88 (>60 ml/min/1.73 sqM); Potassium 3.3 mmol/L (3.5-5.1); Sodium 130 mmol/L (137-145)
[2021-05-07] MEDS: HEPARIN SODIUM,PORCINE/PF 5,000 UNIT/0.5 ML SYRINGE SQ SCH ×2 (10:16→20:16)
[2021-05-07] MEDS: TIMOLOL 0.5% OPHTH DROPS 5 ML BTL BOTH EYES SCH (10:58)
[2021-05-07] MEDS: ASPIRIN 325 MG TAB PO SCH ×2 (11:45→18:13)
[2021-05-07] MEDS ORDERED: Potassium Replacement Protocol 1 EACH MISC MISCELLANE PRN (13:33)
[2021-05-07] MEDS: POTASSIUM CHLORIDE ER 20 MEQ TAB.ER PO SCH ×2 (14:43→15:19)
[2021-05-07] MEDS ORDERED: PEG 3350-NA SULF,BICARB,CL/KCL 4,000 ML BOTTLE PO ONE (15:00)
[2021-05-07] MEDS ORDERED: POTASSIUM BICARBONATE/CIT AC 20 MEQ TABLET.EFF PO ONE (15:19)
--- NOTE | 2021-05-07 16:35 | PN ---
PROGRESS NOTE NEW DATA: 5 foot 6 inches and his weight 69.4 kg. BSA 1.78 m2. BMI 24.7 kg/m2. Allergies unknown. The patient is seen today and evaluated and discussed with the patient and his son, Dr. Rich Lanza as well. He was at bedside. On today evaluation, his sodium improved from 128-130, still on the low side, but he had also hypokalemia with a potassium 3.3, and he had still mild hyperglycemia and he is eating a full liquid diet at the time with full of sugary. His calcium is 9.2 today. Reviewing yesterday on 05/06/2021, the patient had lipase was elevated at 5.4, as well as his sodium was 128 with hyponatremia. His renal function is normal with the estimated glomerular filtration rate 88, which is satisfactory with the underlying hyponatremia. He had also pearson virus PCR which was non detected and he had a serum sodium was 271, which is low due to the hyponatremia and his magnesium was 1.8 yesterday. However, we will be checking it again tomorrow. Because of his abdominal distention and pain and elevated lipase, the patient had abdominal x-ray to rule out perforation with vague tenderness and his x-ray of the abdomen was done on yesterday on 05/06/2021 and was indicating that no acute abdomen with no evidence of constipation, no bowel obstruction and no adverse changes. Patient is still feeling that he wants to go to the bathroom and when he goes he could not have any bowel movement and Dr. Mayer, I did discuss with her PA today as well that she will be only doing outpatient work and they will not see the patient in the hospital, but he already planned with her to have a colonoscopy tomorrow FridayMay 08 and we did the cancel the consult but meanwhile this is the previous the planning and I did discuss it with Rich Lanza, the son and he will be contacting Dr. Mayer, as he is able to contact her to keep his colonoscopy tomorrow if was not mistakenly changed. But she will be working tomorrow as outpatient with the endoscopies. I did also with the lipase elevation order CA19-19, which is for the pancreas and we will be depend on the outcome and the results of the colonoscopy, probably with the initial CT scan was irregularities of the head of the pancreas and the suspicious of the pancreas abnormalities probably will proceed further with an MRCP versus versus just MRI of the abdomen to clarify the issue of the pancreas with the inability to eat, loss of appetite, loss of weight, as well as the vague abdominal pain and meanwhile elevated lipase and blood sugar is not well controlled. PHYSICAL EXAM: The patient Dr. Hernandez was conscious, alert, oriented x3, and his son was at bedside. Stem pressure was 98.1 F oral and his heart rate ranging between 62-56 without beta blockers. His respiratory rate 16 and his blood pressure the last one was 124/63, which is fairly well controlled with the current medication and his pulse ox 100 percent on room air. The head was normocephalic and atraumatic. Pupils were equal, reactive. Hearing was stable and nose was negative without rhinitis. Oropharynx was negative with natural teeth. The neck was supple. No JVD. No thyromegaly. No lymphadenopathy. He has a transmitted from aortic stenosis to the base of the heart with the underlying by the echocardiogram mild aortic stenosis done in his previous admission and seen at that time by Dr. Nahomi Mancia, who did also event monitor on him. The chest was clear to auscultation and percussion. No wheezes, no rhonchi and the heart was PMI in the 5th intercostal space. Normal S1, S2. No gallop and sinus rhythm and there is a murmur as mentioned on the apex radiated to the base of the heart, grade 1-2/6 with predominant aortic stenosis. The abdomen is protuberant and still tympanitic on percussion and bowel sounds was positive. However, he has tenderness on the mid abdomen with the distention of the abdomen. The inguinal area positive pulses and extremities no edema and positive pulses and no evidence of decompensation. Neurologically stable. No lateralizing signs. No facial drooping. No cranial nerve abnormalities. ASSESSMENT: 1. The patient had dehydration. 2. Hyponatremia with the drop in his sodium. 3. Lipase is elevated associated with abdominal pain and distention. 4. Underlying pancreatic abnormalities are a possibility and we are waiting at this time for the colonoscopy to be done tomorrow. If it is clear, we will proceed with MRCP/MRI of the abdomen, specifically for the pancreas. 5. Seems to be that Dr. Mayer ordered in the past CA19-9. However, I do not have these results. However, Dr. Villanueva, the son stated that it was elevated and I could not retrieve it from the computer. However, today we ordered the CA-19-9 today and I spoke with the lab personally and we added to the lab until we retrieve and to see also if there is further elevation with that to proceed for workup for the pancreas. We will be checking also with Dr. Mayer on this issue with the chronic constipation and the feeling of pressure behind and unknown the radiation colitis versus radiation proctitis is consideration until we have the clearance from the colonoscopy. PLAN: We will continue the current treatment and we will obtain serum magnesium and serum potassium tomorrow as well as we will supplement with the protocol for potassium today and I did call the nursing staff on the floor and his nurse to adjust for that. MMODL / IJN: [id number] /
[2021-05-07] MEDS: HYDROCORTISONE ENEMA 100 MG/60 ML RECTAL SCH (20:16)
[2021-05-07] MEDS: LATANOPROST 0.005% OPHTH DROPS 2.5 ML BTL BOTH EYES SCH (21:02)
[2021-05-07] MEDS: ATORVASTATIN 80 MG TAB PO SCH (21:02)
[2021-05-08] MEDS: SODIUM CHLORIDE 0.9% 1,000 ML IV SCH ×3 (04:49→23:37)
[2021-05-08] MEDS: ASPIRIN 325 MG TAB PO SCH ×2 (07:32→20:16)
[2021-05-08] MEDS: HEPARIN SODIUM,PORCINE/PF 5,000 UNIT/0.5 ML SYRINGE SQ SCH ×2 (07:32→19:50)
[2021-05-08] MEDS: amLODIPine 2.5 MG TAB PO SCH ×3 (09:59→20:31)
[2021-05-08] MEDS: DOCUSATE 100 MG CAP PO SCH ×2 (09:59→19:50)
[2021-05-08] MEDS: lisinopriL 10 MG TAB PO SCH ×2 (09:59→19:51)
[2021-05-08] MEDS: CITALOPRAM HYDROBROMIDE 10 MG TAB PO SCH ×2 (09:59→14:06)
[2021-05-08] MEDS: TIMOLOL 0.5% OPHTH DROPS 5 ML BTL BOTH EYES SCH (10:00)
[2021-05-08 10:52] LABS: African American GFR (CKD) 96.4 (60.0-200.0); Anion Gap 12.8 mmol/L (4.00-12.00); BUN/Creat Ratio 9.38 Ratio (12.00-20.00); Blood Urea Nitrogen 7.5 mg/dL (9.0-27.0); Calcium 8.3 mg/dL (8.7-10.3); Carbon Dioxide 24.2 mmol/L (21.6-31.8); Magnesium 1.9 mg/dL (1.5-2.4); Non-African American GFR(CKD) 83.2 (60.0-200.0); Potassium 3.8 mmol/L (3.5-5.5)
[2021-05-08] MEDS ORDERED: PROPOFOL 10 MG/ML 20 ML VIAL IV ONE (11:24)
[2021-05-08] MEDS ORDERED: LIDOCAINE 1% INJ 10MG/ML (20 ML MDV) ONE (11:24)
[2021-05-08] MEDS ORDERED: IV FLUID CONTINUATION 1,000 ML IV ONE (11:28)
--- NOTE | 2021-05-08 11:49 | P.PCN ---
Date of Procedure: 05/08/21 Procedure(s) Performed: BRIEF HISTORY: Patient is a 81-year-old pleasant male admitted hospital with ongoing lower abdominal discomfort, chronic constipation and sense of incomplete evacuation with progressive weight loss for the last few weeks duration. He scheduled for coloscopy to evaluate further PROCEDURE PERFORMED: Colonoscopy. PREOPERATIVE DIAGNOSIS: Abdominal pain, chronic constipation IV sedation per Anesthesia. PROCEDURE: After informed consent was obtained, the patient, was brought into the endoscopy unit. IV sedation was administered by Anesthesia under continuous monitoring. Digital rectal examination was normal. Initially the Olympus CF-160 flexible video colonoscope was then inserted in the rectum, gradually advanced into the cecum without any difficulty. Careful examination was performed as the scope was gradually being withdrawn. Ileocecal valve and the appendiceal orifice were visualized and appeared normal. Prep was excellent. Mucosa of the cecum, ascending colon, transverse colon, descending colon, sigmoid colon, and rectum appeared normal. Retroflexion was performed in the rectum and no lesions were seen. The patient tolerated the procedure well. IMPRESSION: Normal-appearing colon from rectum to cecum with no evidence of colitis or colorectal neoplasia . RECOMMENDATIONS: Findings of this examination were discussed with the patient as well as his family. He will continue with osmotic laxatives as needed. Resume regular diet..
--- NOTE | 2021-05-08 12:33 | CONS ---
CONSULTATION DATE OF DICTATION: 05/08/2021 REASON FOR CONSULTATION: Abdominal discomfort, chronic constipation. HISTORY OF PRESENT ILLNESS: The patient is an 81-year-old male admitted to the hospital because of progressively worsening abdominal discomfort in the lower abdominal area associated with chronic constipation, in the sense of incomplete evacuation on and off for the last several weeks duration. His symptoms lately have been progressively getting worse. He was recently started on MiraLAX 1 scoop twice daily despite which continued to remain symptomatic. He has been using Listerine suppositories. It was recently hospitalized for the same issue and possible TIA. He was subsequently started on Fleet enema with no help. He was given some steroid enema with some relief. He was discharged home but continued to have similar symptoms on an outpatient basis and hence he was scheduled for an outpatient colonoscopy today. In the meantime, because of worsening symptoms, he was admitted to the hospital for further management. At the time of admission to the hospital, he did have abdominal x-rays that did not show any evidence of bowel obstruction. His last colonoscopy was approximately 5 or 6 years ago and was within normal limits. PAST MEDICAL HISTORY: Her past medical history is significant for prostate cancer, recent TIA, hypertension, hyperlipidemia, anxiety. MEDICATIONS: At home, MiraLAX, Zestril, Norvasc, Timoptic, Colocort, Anusol, Colace, Lipitor, aspirin. ALLERGIES: None. SOCIAL HISTORY: No smoking. No alcohol use. FAMILY HISTORY: Unremarkable. REVIEW OF SYSTEMS: CARDIOPULMONARY: No chest pain, no shortness of breath. GENITOURINARY: No dysuria, no hematuria. MUSCULOSKELETAL: Generalized weakness. NEUROLOGY unremarkable. PSYCHIATRIC unremarkable. ENT/VISION unremarkable. CONSTITUTIONAL: Generalized fatigue and weakness. Weight loss of about 10 pounds. No fever, chills, night sweats. PHYSICAL EXAMINATION: He appears comfortable. No apparent distress. VITAL SIGNS: Stable. Blood pressure 172/68, pulse rate 57, temperature 98. HEENT examination unremarkable. Conjunctivae pink. Sclerae anicteric. Oral cavity no lesions. NECK: No JVD or lymph node enlargement. CHEST was clear to auscultation. HEART: Regular rate and rhythm. ABDOMEN was soft, slightly distended but it was nontender. EXTREMITIES: No pedal edema. NEUROLOGIC: Alert and oriented x3. No focal deficits. LABS: WBC 6.7, hemoglobin 13.1, platelets normal. Basic metabolic panel, sodium was 128, potassium 3.7, BUN and creatinine are within normal limits. Lipase was slightly elevated at 504. Amylase normal. ALT/AST and T-bilirubin and alkaline phosphatase are normal. CA-99 was 119. Liu virus PCR is negative. Abdominal x-rays done at the time of admission hospital yesterday showed nonacute abdomen with no evidence of dilated loops of bowel. IMPRESSION: 1. Lower abdominal discomfort with chronic constipation and sense of incomplete evacuation for the last several weeks duration which has been progressively getting worse in the last few days. 2. History of chronic constipation. 3. 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 4. Elevated CA99. 5. Recent transient ischemic attack on aspirin and Plavix but currently Plavix on hold. RECOMMENDATIONS: 1. We will proceed with colonoscopy today. 2. We will schedule him for an MRI of the pancreas. 3. Further recommendations will follow. Thank you for this consultation. GEOFFREY / CHARISSE: [id number] /
[2021-05-08] MEDS ORDERED: hydrALAZINE HCL 10 MG TAB PO PRN (13:18)
[2021-05-08] MEDS ORDERED: CYANOCOBALAMIN 1,000 MCG/ML 1 ML VIAL IM ONE (13:26)
--- NOTE | 2021-05-08 13:48 | P.PN ---
Subjective Progress Note Date: 05/08/21 Progress note date of service 05/08/[address] Valentin. Patient seen and examined [id number]. Discussed with Dr. Pool Hernandez and Dr. Rich Lanza the son. Patient is conscious alert oriented 3 Sodium has been normalized 136. 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 No evidence of obstruction or radiation colitis with the possibility of irritable bowel syndrome. And anxiety and depression. Dr. Duron gastroenterology also ordered MRI of pancreas with and without contrast with the underlying abnormalities of the head of the pancreas by the computed tomography scan of the abdomen, elevated lipase, elevated CA 1919. Patient is conscious alert oriented Able to communicate freely. Neck was supple no JVD no thyromegaly no lymphadenopathy trachea midline. Chest was clear to auscultation percussion Heart was regular sinus rhythm with underlying hypertension which is not controlled. Abdomen protuberant positive bowel sounds gassy post colonoscopy procedure.. Extremities no edema possible neuropathy Neurology and anxiety. Assessment #1 patient on his previous admission found to be with vitamin B12 deficient and he received only one injection of vitamin B12. Shuffled gait short steps with neuropathy , with the treatment of vitamin B12 level injection even if the level is obtained and normal. We will be planning for injection on this admission 1000 g IM. With the underlying anxiety and depression and the plan to add Xanax 0.25 mg 4 times a day when necessary, also increase Celexa to 20 mg daily. Physical therapy for ambulation Dietitian consultation for with the underlying irritable bowel syndrome and improving his appetite eating improvement. Plan: #1 MRI of the abdomen specifically for the pancreas was without contrast ordered by Dr. Duron. #2 will continue physical therapy and ambulation and waiting for the results of the MRI. #3 the computed tomography scan of the abdomen was indicating abnormalities of the head of the pancreas, CA 199 was elevated, lipase was elevated. For further treatment depending on the results of the MRI of the pancreas Objective - Vital Signs Vital signs: Vital Signs Temp 97.8 F 05/08/21 12:07 Pulse 58 L 05/08/21 12:07 Resp 16 05/08/21 12:07 BP 186/71 05/08/21 12:07 Pulse Ox 100 05/08/21 12:07 Intake & Output 05/07/21 05/08/21 05/08/21 18:59 06:59 18:59 Intake Total 900 300 Balance 900 300 Weight 69.4 kg Intake: IV 300 Intake, IV Titration 900 Amount Sodium Chloride 0.9% 1, 900 000 ml @ 75 mls/hr IV . [id number] [facility] Rx#:[id number] Other: Voiding Method Toilet # Voids 4 - Labs CBC & Chem 7: 05/06/21 21:15 05/08/21 05:29 Labs: Abnormal Lab Results - Last 24 Hours (Table) 05/07/21 05/08/21 Range/Units 07:07 05:29 Anion Gap 12.80 H (4.00-12.00) mmol/L BUN 7.5 L (9.0-27.0) mg/dL BUN/Creatinine Ratio 9.38 L (12.00-20.00) Ratio Glucose 119 H (70-110) mg/dL Calcium 8.3 L (8.7-10.3) mg/dL CA 19-9 Antigen 119.0 H (0.0-34.9) U/mL
[2021-05-08 13:58] VITALS: BMI 24.7
[2021-05-08] MEDS: ALPRAZolam 0.25 MG TAB PO SCH ×2 (14:05→18:11)
[2021-05-08] MEDS: ATORVASTATIN 80 MG TAB PO SCH (19:49)
[2021-05-08] MEDS: SENNOSIDES-DOCUSATE SODIUM 1 EACH TAB PO SCH (19:51)
[2021-05-08] MEDS: LATANOPROST 0.005% OPHTH DROPS 2.5 ML BTL BOTH EYES SCH (19:54)
[2021-05-08] MEDS ORDERED: ALPRAZolam 0.25 MG TAB PO PRN (20:15)
[2021-05-09 05:44] VITALS: BP 152/77; PULSE 58; TEMP 98.3
[2021-05-09] MEDS: SENNOSIDES-DOCUSATE SODIUM 1 EACH TAB PO SCH (09:26)
[2021-05-09] MEDS: DOCUSATE 100 MG CAP PO SCH (09:26)
[2021-05-09] MEDS: lisinopriL 10 MG TAB PO SCH (09:26)
[2021-05-09] MEDS: CITALOPRAM HYDROBROMIDE 10 MG TAB PO SCH (09:26)
[2021-05-09] MEDS: HEPARIN SODIUM,PORCINE/PF 5,000 UNIT/0.5 ML SYRINGE SQ SCH (09:27)
[2021-05-09] MEDS: amLODIPine 2.5 MG TAB PO SCH (09:28)
[2021-05-09] MEDS: TIMOLOL 0.5% OPHTH DROPS 5 ML BTL BOTH EYES SCH (09:30)
[2021-05-09 10:54] LABS: African American GFR (CKD) 96.4 (60.0-200.0); Anion Gap 11.5 mmol/L (4.00-12.00); BUN/Creat Ratio 12.63 Ratio (12.00-20.00); Blood Urea Nitrogen 10.1 mg/dL (9.0-27.0); Calcium 8.4 mg/dL (8.7-10.3); Carbon Dioxide 23.5 mmol/L (21.6-31.8); Non-African American GFR(CKD) 83.2 (60.0-200.0); Potassium 3.6 mmol/L (3.5-5.5)
--- NOTE | 2021-05-09 11:46 | MR ---
MRI pancreas with and without contrast HISTORY: Abdominal pain, weight loss, elevated CA 19-9 Multiplanar multisequence and postcontrast images obtained through the pancreas following 7 cc gadoli nium based IV Correlation to CT 04/29/2021 The pancreas shows persistent bulky appearance of the head region, suggestion of filling defect exten ding into the second or third portion of the duodenum on prior CT is thought to persist, axial image 14, series 701. Homogenous enhancement is noted following contrast administration. Suspect there is s ome loss of the fat plane adjacent to the superior mesenteric vein near the confluence with the splen ic vein, axial image 49 series 1201 No definite local adenopathy. There is no ascites. There is no evident liver mass. Gallbladder is within normal limits. Adrenal glands and spleen are un remarkable. Aorta shows normal caliber. There are some atheromatous changes present. Cortical cyst is associated with the posterior aspect of the midpole the left kidney similar to prior. Lung bases show no effusion. IMPRESSION: Head of the pancreas shows persistent bulky appearance, in light of patient's abnormal CA -19-9, consideration for biopsy suggested. Consider surgical consult, endoscopic ultrasound-guided bi opsy may be an option.
[2021-05-09] MEDS ORDERED: CLOPIDOGREL 75 MG TAB PO STA (13:07)
--- NOTE | 2021-05-09 13:34 | P.DS ---
Providers Date of admission: 05/06/21 18:15 Expected date of discharge: 05/09/21 Attending physician: Hansel Valentin Consults: 05/06/21 19:03 Consult Physician Routine Consulting Provider: Makenna Mayer Consult Reason/Comments: abdominal pain, colonoscopy Do you want consulting provider notified?: Yes, Notify in am Primary care physician: Stated None This is a dictation of the discharge summary Date of service 05/09/[address] edward M.D. [facility]. Final diagnosis: #1 hyponatremia #2 dehydration #3 chronic constipation #4 hypertension hypertensive heart disease #5 of irritable bowel syndrome #6 resistant bulky appearance of the head of the pancreas, elevated CA 199 questionable for malignancy for further evaluation as outpatient with the surgical consult and endoscopic ultrasound-guided biopsy. #7 vitamin B12 deficiency supplemented. #8 hyponatremia has been result #9 and anxiety/depression with the associated illness #10 also appetite. #11 history of TIA no recurrence. Dr. Yanira Mensah did discuss the results of the MRI with Dr. Hernandez and his son zabrina Lanza. Admission as patient has severe dehydration and hyponatremia on admission admitted directly to the hospital from home for IV hydration and followed with the colonoscopy which was done yesterday on 05/08/2021 with negative results with the assuming possibility of irritable bowel syndrome. Dr. Duron also ordered the MRI of the abdomen specifically for the pancreas with without contrast which was suspicious with the CVA 199 was elevated to 119 on this admission. MRI results indicating head of the pancreas shows resistant bulky appearance with the underlying history of CA 199 consideration for biopsy suggested and consider surgical consult, endoscopic ultrasound-guided biopsy also as an option. As discussed with the patient and his son, they will need time to recover with the weakness and generalized fatigue and dehydration and and build the stamina and Dr. Hernandez the patient and his son will be decided when to proceed for further as above. Hospital course: As patient admitted to the hospital he was continued hydration, and adjustment of his blood pressure which wasn't controlled well and adjusted medication. And ambulation. Dr. Rich Lanza who is his son will be monitoring his blood pressure as outpatient and also patient given when necessary medication to be used in case of blood pressure above 140 systolic. Exam on discharge: The head was normocephalic and atraumatic, pupil equal reactive, oropharynx normal able to eat however he is loss of appetite and he is gradually improving. The neck was supple no JVD no thyromegaly no lymphadenopathy trachea midline. Chest is clear to auscultation and percussion no wheezes no rhonchi's. Heart regular sinus rhythm with the underlying hypertension currently controlled with when necessary medication as well as the amlodipine and the lisinopril. Abdomen: Protuberant mildly distended. Positive bowel sounds and colonoscopy was negative. Extremities: No edema and positive pulses bilateral and symmetrical Neurologically: History of TIA and no complete CVA. No lateralizing sign no neuro deficit. And continued with Plavix and aspirin for 1 months followed by Plavix only 75 mg once a daily prescription given. Assessment: Patient stable for discharge follow-up as outpatient and further investigation when patient feel better. Plan: Discharge home today stables general condition follow-up as outpatient with Dr. Yanira Mensah, Dr. ISABEL Mancia, Dr. Bella. Plan - Discharge Summary Discharge Rx Participant: Yes New Discharge Prescriptions: New hydrALAZINE HCL [Apresoline] 10 mg PO QID PRN #120 tab PRN Reason: Blood Pressure - High Aspirin 81 mg PO DAILY tab Latanoprost Ophth [Xalatan 0.005%] 1 drops BOTH EYES HS ml ALPRAZolam [Xanax] 0.25 mg PO QID PRN #12 tab PRN Reason: Anxiety Citalopram Hydrobromide [CeleXA] 20 mg PO DAILY #30 tab amLODIPine [Norvasc] 5 mg PO BID #60 tab Clopidogrel [Plavix] 75 mg PO DAILY tab traMADol HCl [Ultram] 50 mg PO QID PRN #12 tab PRN Reason: Mild To Moderate Pain Continue Latanoprost/Pf [Latanoprost 0.005% Eye Drop] 1 drop BOTH EYES DAILY Docusate [Colace] 100 mg PO BID cap Timolol 0.5% Ophth Soln [Timoptic 0.5% Ophth Soln] 1 drop BOTH EYES DAILY Atorvastatin [Lipitor] 80 mg PO HS #30 tab lisinopriL [Zestril] 10 mg PO BID #60 tab Discontinued Ibuprofen [Motrin] 600 mg PO QID PRN tab PRN Reason: Mild Pain amLODIPine [Norvasc] 2.5 mg PO BID #60 tab Hydrocortisone Suppository [Anusol-Hc] 25 mg RECTAL DAILY #14 suppositor Hydrocortisone Enema [Colocort] 100 mg RECTAL HS #14 ml Aspirin 325 mg PO DAILY tab polyethylene glycoL 3350 [Miralax] 17 gm PO DAILY #30 packet Discharge Medication List Latanoprost/Pf [Latanoprost 0.005% Eye Drop] 1 drop BOTH EYES DAILY 04/28/21 [History] Timolol 0.5% Ophth Soln [Timoptic 0.5% Ophth Soln] 1 drop BOTH EYES DAILY 04/28/21 [History] Atorvastatin [Lipitor] 80 mg PO HS #30 tab 05/02/21 [Rx] Docusate [Colace] 100 mg PO BID cap 05/02/21 [Rx] lisinopriL [Zestril] 10 mg PO BID #60 tab 05/02/21 [Rx] ALPRAZolam [Xanax] 0.25 mg PO QID PRN #12 tab 05/09/21 [Rx] Aspirin 81 mg PO DAILY tab 05/09/21 [Rx] Citalopram Hydrobromide [CeleXA] 20 mg PO DAILY #30 tab 05/09/21 [Rx] Clopidogrel [Plavix] 75 mg PO DAILY tab 05/09/21 [Rx] Latanoprost Ophth [Xalatan 0.005%] 1 drops BOTH EYES HS ml 05/09/21 [Rx] amLODIPine [Norvasc] 5 mg PO BID #60 tab 05/09/21 [Rx] hydrALAZINE HCL [Apresoline] 10 mg PO QID PRN #120 tab 05/09/21 [Rx] traMADol HCl [Ultram] 50 mg PO QID PRN #12 tab 05/09/21 [Rx] Follow up Appointment(s)/Referral(s): [facility], [NON-STAFF] - 1-2 Days Shahriar Mancia MD [STAFF PHYSICIAN] - 1 Week Makenna Mayer MD [STAFF PHYSICIAN] - 1 Week Hansel Valentin MD [STAFF PHYSICIAN] - 1 Week Activity/Diet/Wound Care/Special Instructions: pt would like flu vaccine at discharge Discharge/Stand Alone Forms: [facility]
[2021-05-09] MEDS ORDERED: INFLUENZA VACC HIGH-DOSE (65+) 240 MCG/0.7 ML SYRINGE IM ONE (13:37)
--- NOTE | 2021-05-09 13:45 | PN ---
PROGRESS NOTE DATE OF DICTATION: 05/09/2021 Patient is an 81-year-old pleasant male admitted to the hospital with abdominal bloating, abdominal distention and chronic constipation for the last few months' duration. He underwent a colonoscopy yesterday that showed normal-appearing colon from rectum to cecum with no evidence of colitis or colorectal neoplasia. During his previous hospitalization about a week ago he had a CT of the abdomen and pelvis done that showed heterogeneous-appearing pancreas, and hence an MRI of the pancreas was obtained, which was done this morning. The MRI of the pancreas did show evidence of bulky appearance with some heterogenicity noted in the head of the pancreas, but no obvious mass lesion identified. The CA 19-9 that was performed last week was 119. The patient still continues to have some abdominal bloating. No nausea or vomiting. PHYSICAL EXAMINATION: Appears comfortable. No apparent distress. Vital signs are stable. Blood pressure 112/88, pulse rate 92 per minute and afebrile. HEENT EXAMINATION: Unremarkable. Conjunctivae pink. Sclerae anicteric. Oral cavity no lesions. NECK: No JVD or lymph node enlargement. Chest was clear to auscultation. HEART: Regular rate and rhythm. Abdomen was soft. Bowel sounds are positive. No organomegaly. EXTREMITIES: No pedal edema. NEURO: Alert and oriented x3. No focal deficits. IMPRESSION: 1. Abdominal pain, abdominal bloating and chronic constipation, status post colonoscopy yesterday that was unremarkable. 2. Abnormal MRI showing bulky-appearing head of the pancreas with no obvious mass identified. Recent CA 19-9 slightly elevated at 119. RECOMMENDATIONS: The findings of the MRI were discussed with the patient as well as his son, who was at the bedside. At this time recommend EUS with biopsies, but patient would like to wait for now. He is being discharged home from the hospital. Will revisit this issue in the next 1 or 2 weeks and consider workup if patient is interested. For now, I recommended to continue with Ensure one can 3 times daily, continue with MiraLAX or suppositories as needed and encouraged small frequent meals. MMODL / IJN: [id number] /
[2021-05-09] MEDS ORDERED: CLOPIDOGREL 75 MG TAB PO SCH (15:00)
[2021-05-09] MEDS ORDERED: ASPIRIN 81 MG PO SCH (15:00)
[2021-05-09] MEDS ORDERED: amLODIPine 5 MG TAB PO SCH (21:00)
[2021-05-09] MEDS ORDERED: ATORVASTATIN 80 MG TAB PO SCH (21:00)
[2021-05-10] MEDS ORDERED: ASPIRIN 325 MG TAB PO SCH (09:00)
== END 2021-05-09 15:30 | disposition home or self-care (01) | DRG 641 ==
LOC: 5NMEDONC 18:15
PROVIDERS: ADMIT Internal Medicine; ATTEND Internal Medicine
PROC: 0DJD8ZZ Inspection of Lower Intestinal Tract, Via Natural or Artificial Opening Endoscopic (ICD-10-PCS; principal; 2021-05-08 11:30)
DX: E87.1 Hypo-osmolality and hyponatremia (principal); E86.0 Dehydration; R10.0 Acute abdomen; R63.0 Anorexia; D64.9 Anemia, unspecified; E87.6 Hypokalemia; R60.9 Edema, unspecified; Z20.822 Contact with and (suspected) exposure to COVID-19; Z85.46 Personal history of malignant neoplasm of prostate; I10 Essential (primary) hypertension; E78.5 Hyperlipidemia, unspecified; I70.8 Atherosclerosis of other arteries; K59.09 Other constipation; I08.3 Combined rheumatic disorders of mitral, aortic and tricuspid valves; E53.8 Deficiency of other specified B group vitamins; F32.9 Major depressive disorder, single episode, unspecified; K00.0 Anodontia; Z79.82 Long term (current) use of aspirin; Z79.899 Other long term (current) drug therapy; R73.9 Hyperglycemia, unspecified; R63.4 Abnormal weight loss; R14.0 Abdominal distension (gaseous); F41.9 Anxiety disorder, unspecified; G62.9 Polyneuropathy, unspecified; K58.1 Irritable bowel syndrome with constipation; Z92.3 Personal history of irradiation; Z86.73 Personal history of transient ischemic attack (TIA), and cerebral infarction without residual deficits; Z79.02 Long term (current) use of antithrombotics/antiplatelets
CPT/HCPCS: 45378; 74021; 74183; 80048; 80053; 81003; 82150; 82607; 83036; 83690; 83735; 83930; 83935; 84100; 84132; 84145; 84300; 85025; 85610; 85730; 86301; 87635; 90662

== ENCOUNTER 2021-11-06 11:19 | Observation (INO) | payer MEDICARE ==
[2021-11-06] MEDS ORDERED: SODIUM CHLORIDE 0.9% 500 ML 500 ML IV STA (11:43)
--- NOTE | 2021-11-06 11:55 | ED ---
General Adult HPI - General Chief complaint: Urogenital Stated complaint: Groin Pain Time Seen by Provider: 11/06/21 11:30 Source: patient, RN notes reviewed, old records reviewed Mode of arrival: ambulatory Limitations: no limitations - History of Present Illness Initial comments: 81-year-old male presenting with several days of left groin pain. Patient has remote history of prostate cancer status post radiation. He has not had any urinary symptoms. He has been moving his bowels. No vomiting. No abdominal pain. - Related Data Home Medications Medication Instructions Recorded Confirmed Latanoprost/Pf [Latanoprost 0.005% 1 drop BOTH EYES DAILY 04/28/21 05/06/21 Eye Drop] Timolol 0.5% Ophth Soln [Timoptic 1 drop BOTH EYES DAILY 04/28/21 05/06/21 0.5% Ophth Soln] Previous Rx's Medication Instructions Recorded Atorvastatin [Lipitor] 80 mg PO HS #30 tab 05/02/21 Docusate [Colace] 100 mg PO BID cap 05/02/21 lisinopriL [Zestril] 10 mg PO BID #60 tab 05/02/21 ALPRAZolam [Xanax] 0.25 mg PO QID PRN #12 tab 05/09/21 Aspirin 81 mg PO DAILY tab 05/09/21 Citalopram Hydrobromide [CeleXA] 20 mg PO DAILY #30 tab 05/09/21 Clopidogrel [Plavix] 75 mg PO DAILY tab 05/09/21 Latanoprost Ophth [Xalatan 0.005%] 1 drops BOTH EYES HS ml 05/09/21 amLODIPine [Norvasc] 5 mg PO BID #60 tab 05/09/21 hydrALAZINE HCL [Apresoline] 10 mg PO QID PRN #120 tab 05/09/21 traMADol HCl [Ultram] 50 mg PO QID PRN #12 tab 05/09/21 Allergies Allergy/AdvReac Type Severity Reaction Status Date / Time No Known Allergies Allergy Verified 11/06/21 11:29 Review of Systems ROS Statement: Those systems with pertinent positive or pertinent negative responses have been documented in the HPI. ROS Other: All systems not noted in ROS Statement are negative. Past Medical History Past Medical History: Cancer, CVA/TIA, Hyperlipidemia, Hypertension Additional Past Medical History / Comment(s): CA: prostate & radiation-16 yrs ago, TIA 05/10 History of Any Multi-Drug Resistant Organisms: None Reported Additional Past Surgical History / Comment(s): colonoscopy Past Anesthesia/Blood Transfusion Reactions: No Reported Reaction Past Psychological History: No Psychological Hx Reported Smoking Status: Never smoker Past Alcohol Use History: None Reported Past Drug Use History: None Reported - Past Family History Mother Family Medical History: Coronary Artery Disease (CAD) Father Family Medical History: Coronary Artery Disease (CAD) General Exam Limitations: no limitations General appearance: alert, in no apparent distress Head exam: Present: atraumatic, normocephalic Eye exam: Present: normal appearance, PERRL ENT exam: Present: normal exam Neck exam: Present: normal inspection. Absent: tenderness, meningismus Respiratory exam: Present: normal lung sounds bilaterally. Absent: respiratory distress, wheezes Cardiovascular Exam: Present: regular rate, normal rhythm GI/Abdominal exam: Present: soft, distended, hernia (Large left inguinal hernia suspected with erythema and induration into the scrotum.). Absent: tenderness, guarding, rebound Extremities exam: Present: normal inspection, normal capillary refill. Absent: pedal edema, calf tenderness Neurological exam: Present: alert, oriented X3, CN II-XII intact. Absent: motor sensory deficit Psychiatric exam: Present: normal affect, normal mood Skin exam: Present: warm, dry, intact Course Vital Signs 11/06/21 11:25 Temperature 98 F Pulse Rate 67 Respiratory 18 Rate Blood Pressure 186/72 O2 Sat by Pulse 100 Oximetry Medical Decision Making - Medical Decision Making 79-year-old male with left inguinal and scrotal pain and swelling. Workup was initiated including CBC, CMP, lactic acid and urinalysis as well as CT. CT does demonstrate a abscess in the left hemiscrotum. I had discussed the case with Dr. Caroline candelaria for urology. He will take the patient for incision and drainage in the operating room. Zosyn and vancomycin are initiated in the emergency department. - Lab Data Result diagrams: 11/06/21 11:48 11/06/21 11:48 Lab Results 11/06/21 11/06/21 11/06/21 Range/Units 11:48 11:48 11:48 WBC 10.1 (3.8-10.6) k/uL RBC 3.78 L (4.30-5.90) m/uL Hgb 11.6 L (13.0-17.5) gm/dL Hct 32.7 L (39.0-53.0) % MCV 86.4 (80.0-100.0) fL MCH 30.8 (25.0-35.0) pg MCHC 35.6 (31.0-37.0) g/dL RDW 14.8 (11.5-15.5) % Plt Count 177 (150-450) k/uL MPV 8.6 Neutrophils % 77 % Lymphocytes % 8 % Monocytes % 9 % Eosinophils % 1 % Basophils % 0 % Neutrophils # 7.8 H (1.3-7.7) k/uL Lymphocytes # 0.8 L (1.0-4.8) k/uL Monocytes # 0.9 (0-1.0) k/uL Eosinophils # 0.1 (0-0.7) k/uL Basophils # 0.0 (0-0.2) k/uL Hyperchromasia Slight Poikilocytosis Slight PT 10.5 (9.0-12.0) sec INR 1.0 (<1.2) APTT 23.7 (22.0-30.0) sec Sodium (137-145) mmol/L Potassium (3.5-5.1) mmol/L Chloride (98-107) mmol/L Carbon Dioxide (22-30) mmol/L Anion Gap mmol/L BUN (9-20) mg/dL Creatinine (0.66-1.25) mg/dL Est GFR (CKD-EPI)AfAm (>60 ml/min/1.73 sqM) Est GFR (CKD-EPI)NonAf (>60 ml/min/1.73 sqM) Glucose (74-99) mg/dL Plasma Lactic Acid Mario (0.7-2.0) mmol/L Calcium (8.4-10.2) mg/dL Total Bilirubin (0.2-1.3) mg/dL AST (17-59) U/L ALT (4-49) U/L Alkaline Phosphatase (38-126) U/L Total Protein (6.3-8.2) g/dL Albumin (3.5-5.0) g/dL Amylase (30-110) U/L Lipase (23-300) U/L Urine Color Yellow Urine Appearance Clear (Clear) Urine pH 5.5 (5.0-8.0) Ur Specific [place] 1.023 (1.001-1.035) Urine Protein Trace H (Negative) Urine Glucose (UA) Negative (Negative) Urine Ketones Negative (Negative) Urine Blood Negative (Negative) Urine Nitrite Negative (Negative) Urine Bilirubin Negative (Negative) Urine Urobilinogen 2.0 (<2.0) mg/dL Ur Leukocyte Esterase Negative (Negative) 11/06/21 11/06/21 Range/Units 11:48 11:48 WBC (3.8-10.6) k/uL RBC (4.30-5.90) m/uL Hgb (13.0-17.5) gm/dL Hct (39.0-53.0) % MCV (80.0-100.0) fL MCH (25.0-35.0) pg MCHC (31.0-37.0) g/dL RDW (11.5-15.5) % Plt Count (150-450) k/uL MPV Neutrophils % % Lymphocytes % % Monocytes % % Eosinophils % % Basophils % % Neutrophils # (1.3-7.7) k/uL Lymphocytes # (1.0-4.8) k/uL Monocytes # (0-1.0) k/uL Eosinophils # (0-0.7) k/uL Basophils # (0-0.2) k/uL Hyperchromasia Poikilocytosis PT (9.0-12.0) sec INR (<1.2) APTT (22.0-30.0) sec Sodium 137 (137-145) mmol/L Potassium 4.7 (3.5-5.1) mmol/L Chloride 104 (98-107) mmol/L Carbon Dioxide 26 (22-30) mmol/L Anion Gap 7 mmol/L BUN 38 H (9-20) mg/dL Creatinine 1.30 H (0.66-1.25) mg/dL Est GFR (CKD-EPI)AfAm 59 (>60 ml/min/1.73 sqM) Est GFR (CKD-EPI)NonAf 51 (>60 ml/min/1.73 sqM) Glucose 173 H (74-99) mg/dL Plasma Lactic Acid Mario 1.4 (0.7-2.0) mmol/L Calcium 8.5 (8.4-10.2) mg/dL Total Bilirubin 0.9 (0.2-1.3) mg/dL AST 22 (17-59) U/L ALT 18 (4-49) U/L Alkaline Phosphatase 63 (38-126) U/L Total Protein 6.4 (6.3-8.2) g/dL Albumin 3.8 (3.5-5.0) g/dL Amylase 80 (30-110) U/L Lipase 269 (23-300) U/L Urine Color Urine Appearance (Clear) Urine pH (5.0-8.0) Ur Specific [place] (1.001-1.035) Urine Protein (Negative) Urine Glucose (UA) (Negative) Urine Ketones (Negative) Urine Blood (Negative) Urine Nitrite (Negative) Urine Bilirubin (Negative) Urine Urobilinogen (<2.0) mg/dL Ur Leukocyte Esterase (Negative) Disposition Clinical Impression: Scrotal abscess Disposition: ADMITTED IP TO THIS [facility] Condition: Stable Is patient prescribed a controlled substance at d/c from ED?: No Referrals: Hansel Valentin MD [Primary Care Provider] - 1-2 days Time of Disposition: 13:45
[2021-11-06 12:06] LABS: Basophils % (A) 0 %; Eosinophils # (A) 0.1 k/uL (0-0.7); Eosinophils % (A) 1 %; HCT 32.7 % (39.0-53.0); HGB 11.6 gm/dL (13.0-17.5); Hyperchromasia Slight; Lymphocytes # (A) 0.8 k/uL (1.0-4.8); Lymphocytes % (A) 8 %; MCH 30.8 pg (25.0-35.0); MCHC 35.6 g/dL (31.0-37.0); MCV 86.4 fL (80.0-100.0); Mean Platelet Volume 8.6; Monocytes # (A) 0.9 k/uL (0-1.0); Monocytes % (A) 9 %; Neutrophils # (A) 7.8 k/uL (1.3-7.7); Neutrophils % (A) 77 %; Platelet Count 177 k/uL (150-450); Poikilocytosis Slight; RBC 3.78 m/uL (4.30-5.90); RDW 14.8 % (11.5-15.5); WBC 10.1 k/uL (3.8-10.6)
[2021-11-06 12:11] LABS: Partial Thromboplastin Time 23.7 sec (22.0-30.0); Prothrombin Time 10.5 sec (9.0-12.0)
[2021-11-06 12:13] LABS: Albumin 3.8 g/dL (3.5-5.0); Calcium 8.5 mg/dL (8.4-10.2); Potassium 4.7 mmol/L (3.5-5.1); Total Bilirubin 0.9 mg/dL (0.2-1.3); Total Protein 6.4 g/dL (6.3-8.2)
[2021-11-06 12:37] LABS: Appearance,Urine Clear (Clear); Bilirubin,Urine Negative (Negative); Blood,Urine Negative (Negative); Color,Urine Yellow; Glucose,Urine (UA) Negative (Negative); Ketones,Urine Negative (Negative); Leukocyte Esterase,Urine Negative (Negative); Nitrite,Urine Negative (Negative); PH, Urine 5.5 (5.0-8.0); Protein,Urine Trace (Negative); Specific Gravity,Urine 1.023 (1.001-1.035)
--- NOTE | 2021-11-06 13:18 | CT ---
EXAMINATION TYPE: CT abdomen pelvis wo con DATE OF EXAM: 11/06/2021 COMPARISON: CT dated 04/29/2021 HISTORY: Left inguinal pain CT DLP: 535.4 mGycm Automated exposure control for dose reduction was used. TECHNIQUE: Helical acquisition of images was performed from the lung bases through the pelvis. FINDINGS: LUNG BASES: Left atrial dilatation with coronary arterial calcification. LIVER/GB: No significant abnormality is appreciated. PANCREAS: No significant abnormality is seen. SPLEEN: No significant abnormality is seen. ADRENALS: No significant abnormality is seen. KIDNEYS: Suspected left mid pole renal cyst measuring 2.1 cm, suboptimally assessed by this nonenhanc ed CT scan. Grossly unremarkable kidneys otherwise. No hydroureter or hydronephrosis. FREE AIR: No free air is visualized RETROPERITONEAL ADENOPATHY: None visualized REPRODUCTIVE ORGANS: Few metallic markers/surgical clips are seen within the prostate. Unremarkable s eminal vesicles. URINARY BLADDER: Nondistended PELVIC ADENOPATHY: None visualized. OSSEOUS STRUCTURES: Osteopenia. Degenerative changes of the lower thoracic and lumbar spine. Lucency seen at the right side of L4 upper endplate, possibly representing a Schmorl's node. Further bone sc an assessment can be considered. Anterolisthesis of L5 over S1 with bilateral L5-S1 facet osteoarthro giuliana and significant neuroforaminal stenosis at that level. BOWEL: No significant abnormality is seen. OTHER: Scattered arterial atherosclerotic calcification. No paraspinal lesion. Fat-containing umbilic al hernia. Apparent scrotal swelling with focal soft tissue thickening at the superior aspect of the left hemiscrotum with possible cystic change within measuring 3.9 x 2.3 x 4 cm. This is seen posterio r to the left spermatic cord and adjacent to the left upper thigh. Underlying abscess formation at th at location cannot be excluded, please correlate clinically. IMPRESSION: Suspected focal inflammatory changes/abscess formation along the superior posterior aspect of the lef t hemiscrotum adjacent to the left upper thigh and perineum as described above, please correlate clin ically. Further targeted ultrasound assessment can be considered. Apparent scrotal swelling more on t he left side. Other incidental findings as described above.
[2021-11-06] MEDS ORDERED: PIPERACILLIN-TAZOBACTAM 3.375 GM in SODIUM CHLORIDE 0.9% 100 ML IVPB STA (13:23)
[2021-11-06] MEDS ORDERED: VANCOMYCIN IV PER PHARMACY 1 EACH MISC MISCELLANE PRN (13:24)
[2021-11-06] MEDS ORDERED: NALOXONE 0.4 MG/ML 1 ML VIAL IV PRN (13:58)
[2021-11-06] MEDS ORDERED: HYDROmorphone 0.5 MG/0.5 ML SYRINGE IVP PRN (13:58)
[2021-11-06] MEDS ORDERED: SODIUM CHLORIDE 0.9% 1,000 ML IV SCH (14:00)
--- NOTE | 2021-11-06 14:17 | P.GSCN ---
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 He presented emergency room. He had some chills. On evaluation there is an infection suspected. A computed tomography scan was consistent with a left scrotal abscess. We are asked see the patient. He has had nothing like this before. On examination there is fluctuance and an area of induration in the left upper scrotum insistent with a left scrotal abscess. Patient's white count is 10,000. His urine is clear. Review of Systems All systems: negative - Constitutional Denies fever, Denies weight loss - EENT Eyes: denies blurred vision Ears, nose, mouth and throat: Denies dysphagia - Cardiovascular Denies chest pain, Denies shortness of breath - Respiratory Denies cough, Denies 7 - Gastrointestinal Reports as per HPI - Genitourinary Denies dysuria, Denies hematuria - Integumentary Denies rash, Denies unusual bruising - Neurological Denies headaches, Denies syncope - Hematologic/Lymphatic Denies easy bleeding, Denies easy bruising Past Medical History Past Medical History: Cancer, CVA/TIA, Hyperlipidemia, Hypertension Additional Past Medical History / Comment(s): CA: prostate & radiation-16 yrs ago, TIA 05/10 History of Any Multi-Drug Resistant Organisms: None Reported Additional Past Surgical History / Comment(s): colonoscopy Past Anesthesia/Blood Transfusion Reactions: No Reported Reaction Past Psychological History: No Psychological Hx Reported Smoking Status: Never smoker Past Alcohol Use History: None Reported Past Drug Use History: None Reported - Past Family History Mother Family Medical History: Coronary Artery Disease (CAD) Father Family Medical History: Coronary Artery Disease (CAD) Medications and Allergies Home Medications Medication Instructions Recorded Confirmed Type Latanoprost/Pf [Latanoprost 0.005% 1 drop BOTH EYES DAILY 04/28/21 05/06/21 History Eye Drop] Timolol 0.5% Ophth Soln [Timoptic 1 drop BOTH EYES DAILY 04/28/21 05/06/21 History 0.5% Ophth Soln] Atorvastatin [Lipitor] 80 mg PO HS #30 tab 05/02/21 05/06/21 Rx Docusate [Colace] 100 mg PO BID cap 05/02/21 05/06/21 Rx lisinopriL [Zestril] 10 mg PO BID #60 tab 05/02/21 05/06/21 Rx ALPRAZolam [Xanax] 0.25 mg PO QID PRN #12 tab 05/09/21 Rx Aspirin 81 mg PO DAILY tab 05/09/21 Rx Citalopram Hydrobromide [CeleXA] 20 mg PO DAILY #30 tab 05/09/21 Rx Clopidogrel [Plavix] 75 mg PO DAILY tab 05/09/21 Rx Latanoprost Ophth [Xalatan 0.005%] 1 drops BOTH EYES HS ml 05/09/21 Rx amLODIPine [Norvasc] 5 mg PO BID #60 tab 05/09/21 Rx hydrALAZINE HCL [Apresoline] 10 mg PO QID PRN #120 tab 05/09/21 Rx traMADol HCl [Ultram] 50 mg PO QID PRN #12 tab 05/09/21 Rx Allergies Allergy/AdvReac Type Severity Reaction Status Date / Time No Known Allergies Allergy Verified 11/06/21 11:29 Surgical - Exam Vital Signs Temp Pulse Resp BP Pulse Ox 98 F 67 18 186/72 100 11/06/21 11:25 11/06/21 11:25 11/06/21 11:25 11/06/21 11:25 11/06/21 11:25 - General well developed, well nourished, no distress - Eyes PERRL - ENT no hearing loss - Neck trachea midline - Respiratory normal expansion, normal respiratory effort - Cardiovascular Rhythm: regular - Abdomen Abdomen: soft, non tender - Genitourinary Indurated erythematous and fluctuant left upper hemiscrotum with a central area of purulence consistent with a scrotal abscess - Neurologic normal coordination - Musculoskeletal normal posture - Psychiatric oriented to time, oriented to person, oriented to place, speech is normal, memory intact Results - Labs 11/06/21 11:48 11/06/21 11:48 Abnormal Lab Results - Last 24 Hours (Table) 11/06/21 11/06/21 11/06/21 Range/Units 11:48 11:48 11:48 RBC 3.78 L (4.30-5.90) m/uL Hgb 11.6 L (13.0-17.5) gm/dL Hct 32.7 L (39.0-53.0) % Neutrophils # 7.8 H (1.3-7.7) k/uL Lymphocytes # 0.8 L (1.0-4.8) k/uL BUN 38 H (9-20) mg/dL Creatinine 1.30 H (0.66-1.25) mg/dL Glucose 173 H (74-99) mg/dL Urine Protein Trace H (Negative) Diabetes panel 11/06/21 Range/Units 11:48 Sodium 137 (137-145) mmol/L Potassium 4.7 (3.5-5.1) mmol/L Chloride 104 (98-107) mmol/L Carbon Dioxide 26 (22-30) mmol/L BUN 38 H (9-20) mg/dL Creatinine 1.30 H (0.66-1.25) mg/dL Glucose 173 H (74-99) mg/dL Calcium 8.5 (8.4-10.2) mg/dL AST 22 (17-59) U/L ALT 18 (4-49) U/L Alkaline Phosphatase 63 (38-126) U/L Total Protein 6.4 (6.3-8.2) g/dL Albumin 3.8 (3.5-5.0) g/dL Calcium panel 11/06/21 Range/Units 11:48 Calcium 8.5 (8.4-10.2) mg/dL Albumin 3.8 (3.5-5.0) g/dL Pituitary panel 11/06/21 Range/Units 11:48 Sodium 137 (137-145) mmol/L Potassium 4.7 (3.5-5.1) mmol/L Chloride 104 (98-107) mmol/L Carbon Dioxide 26 (22-30) mmol/L BUN 38 H (9-20) mg/dL Creatinine 1.30 H (0.66-1.25) mg/dL Glucose 173 H (74-99) mg/dL Calcium 8.5 (8.4-10.2) mg/dL Adrenal panel 11/06/21 Range/Units 11:48 Sodium 137 (137-145) mmol/L Potassium 4.7 (3.5-5.1) mmol/L Chloride 104 (98-107) mmol/L Carbon Dioxide 26 (22-30) mmol/L BUN 38 H (9-20) mg/dL Creatinine 1.30 H (0.66-1.25) mg/dL Glucose 173 H (74-99) mg/dL Calcium 8.5 (8.4-10.2) mg/dL Total Bilirubin 0.9 (0.2-1.3) mg/dL AST 22 (17-59) U/L ALT 18 (4-49) U/L Alkaline Phosphatase 63 (38-126) U/L Total Protein 6.4 (6.3-8.2) g/dL Albumin 3.8 (3.5-5.0) g/dL - Imaging CT scan - abdomen: report reviewed, image reviewed CT scan - pelvis: report reviewed, image reviewed Assessment and Plan Assessment: Impression: Scrotal abscess left Recommendations: The patient ate at 9:00 last. He is too uncomfortable to be drained in the ER. I'll set him up for a surgical procedure around 3 to 4:00 to drain the scrotal abscess.
[2021-11-06] MEDS ORDERED: IV FLUID CONTINUATION 1,000 ML IV ONE (15:41)
[2021-11-06] MEDS ORDERED: SUCCINYLCHOLINE CHLORIDE 100 MG/5 ML SYR IV ONE (15:52)
[2021-11-06] MEDS ORDERED: fentaNYL (PF) 50 MCG/ML 2 ML AMP ONE (15:52)
[2021-11-06] MEDS ORDERED: PROPOFOL 10 MG/ML 20 ML VIAL IV ONE (15:52)
[2021-11-06] MEDS ORDERED: LIDOCAINE 1% INJ 10MG/ML (20 ML MDV) ONE (15:52)
[2021-11-06] MEDS ORDERED: LACTATED RINGERS 1,000 ML IV ONE (15:56)
--- NOTE | 2021-11-06 16:27 | P.OP ---
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 He presented emergency room and has a left scrotal abscess he comes for incision and drainage as he doesn't feel he can tolerate emergency room Description of Procedure: Patient brought to operative suite. He is given a general endotracheal anesthesia. Prepped and draped sterilely. In the high left lateral scrotum there is a pinpoint drainage of abscess. I place a 15 blade to this and culture the drainage for aerobic and anaerobic. I then extended the incision. Adrenal probably 100 mL of fluid. The wound is irrigated thoroughly and then packed with half-inch iodoform gauze. The patient awake and returned recovery room good condition Impressions successful drainage of an abscess. The patient be discharged home on Augmentin found the office in 2 days for packing exchange
[2021-11-06] MEDS ORDERED: SODIUM CHLORIDE 0.9% 1,000 ML IV ONE ×2 (17:10)
[2021-11-06] MEDS: VANCOMYCIN 1,250 MG in SODIUM CHLORIDE 0.9% 250 ML IVPB STA ×2 (17:29→18:00)
[2021-11-06 18:20] VITALS: BP 131/76; RESP 16; TEMP 98
[2021-11-06 18:56] VITALS: PULSE 58
[2021-11-07] MEDS ORDERED: PIPERACILLIN-TAZOBACTAM 3.375 GM in SODIUM CHLORIDE 0.9% 100 ML IVPB SCH ×2
[2021-11-07] MEDS ORDERED: VANCOMYCIN 1,250 MG in SODIUM CHLORIDE 0.9% 250 ML IVPB SCH (16:00)
== END 2021-11-06 20:05 | disposition home or self-care (01) ==
LOC: EC 11:19 → 6NMEDSUR 13:58
PROVIDERS: ADMIT Urology; ATTEND Urology
DX: N49.2 Inflammatory disorders of scrotum (principal); I10 Essential (primary) hypertension; E78.5 Hyperlipidemia, unspecified; Z79.82 Long term (current) use of aspirin; Z79.02 Long term (current) use of antithrombotics/antiplatelets; Z79.899 Other long term (current) drug therapy; Z86.73 Personal history of transient ischemic attack (TIA), and cerebral infarction without residual deficits; Z85.46 Personal history of malignant neoplasm of prostate; Z92.3 Personal history of irradiation; Z98.890 Other specified postprocedural states; Z82.49 Family history of ischemic heart disease and other diseases of the circulatory system
CPT/HCPCS: 99285; 36415; 80053; 82150; 83605; 83690; 85025; 85610; 85730; 81003; 87040; 87070; 87205; 87075; 74176; 55100; G0378; J2543; J3370; J2001; J3010; J0330; J2704

== ENCOUNTER → 2022-06-14 | Outpatient (CLI) | payer MEDICARE ==
--- NOTE | 2022-06-16 22:40 | US ---
EXAMINATION TYPE: US venous doppler duplex LE DATE OF EXAM: 06/14/2022 4:40 PM COMPARISON: NONE CLINICAL HISTORY: R60.9 EDEMA, UNSPECIFIED. Edema on aspirin and Plavix. SIDE PERFORMED: Bilateral TECHNIQUE: The lower extremity deep venous system is examined utilizing real time linear array sonog romaine with graded compression, doppler sonography and color-flow sonography. VESSELS IMAGED: Common Femoral Vein Deep Femoral Vein Greater Saphenous Vein * Femoral Vein Popliteal Vein Small Saphenous Vein * Proximal Calf Veins (* superficial vessels) Right Leg: Negative for DVT Left Leg: Negative for DVT Grayscale, color doppler, spectral doppler imaging performed of the deep veins of the bilateral lower extremities. There is normal flow, compressibility, vascular waveforms. IMPRESSION: No ultrasound evidence for acute DVT in either lower extremity.
== END | disposition home or self-care (01) ==
LOC: RADUSWWP 16:06
PROVIDERS: ATTEND Internal Medicine
DX: R60.0 Localized edema (principal); M79.89 Other specified soft tissue disorders
CPT/HCPCS: 93970

== ENCOUNTER 2025-02-16 07:59 | Day surgery (SDC) | payer MEDICARE ==
[~2025-02-16 07:59] MED LIST: LIDOCAINE 1% (10MG/ML) FOR IV START INTRADERMA PRN
[2025-02-16] MEDS: IV FLUID CONTINUATION 1,000 ML IV ONE (08:14)
[2025-02-16 08:32] VITALS: TEMP 98
[2025-02-16] MEDS: LACTATED RINGERS 1,000 ML IV SCH (08:33)
[2025-02-16] MEDS ORDERED: PROPOFOL 10 MG/ML 20 ML VIAL IV ONE (09:18)
--- NOTE | 2025-02-16 09:31 | P.PCN ---
Date of Procedure: 02/16/25 Procedure(s) Performed: Patient is a 84-year-old male year-old schedule for flexible sigmoidoscopy as part of evaluation of intermittent rectal bleeding for the last 2 months duration Preoperative diagnosis: Intermittent rectal bleeding Procedure performed: Flexible sigmoidoscopy coagulation Anesthesia MAC Description of procedure: The patient was brought into the endoscopy unit IV conscious sedation was administered by anesthesia and continuous monitoring. Initial digital rectal examination was normal. The Olympus CF 160 video colonoscope was then inserted into the rectum and gradually advanced to the splenic flexure. Careful examination was performed as the scope was gradually being withdrawn. Mucosa of the descending colon, sigmoid colon and proximal rectum appeared normal. In the distal rectum there were few scattered telangiectasias consistent with mild radiation proctitis and argon plasma coagulation was performed. On retroflexion small internal hemorrhoids were also seen. Patient tolerated the procedure well. 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 Recommendations: Findings of this examination were discussed with the patient as well as his family. He was advised to continue with a high-fiber diet and fiber supplements on a regular basis. Follow-up in the office as needed if he has recurrent rectal bleeding.
[2025-02-16 09:39] VITALS: RESP 14
[2025-02-16 09:53] VITALS: BP 138/68; PULSE 56
== END 2025-02-16 10:16 | disposition home or self-care (01) ==
LOC: ORWHC2ENDO 07:59
PROVIDERS: ATTEND Internal Medicine Gastroenterology
DX: K55.20 Angiodysplasia of colon without hemorrhage (principal); K64.8 Other hemorrhoids; I10 Essential (primary) hypertension; E78.5 Hyperlipidemia, unspecified; N28.9 Disorder of kidney and ureter, unspecified; F41.9 Anxiety disorder, unspecified; Z79.02 Long term (current) use of antithrombotics/antiplatelets; Z79.82 Long term (current) use of aspirin; Z79.899 Other long term (current) drug therapy; Z85.46 Personal history of malignant neoplasm of prostate; Z86.73 Personal history of transient ischemic attack (TIA), and cerebral infarction without residual deficits
CPT/HCPCS: 45334; 45346; J2704